=== PATIENT | male | born 1935 | race Caucasian/White ===

== ENCOUNTER 2022-02-05 09:33 | Inpatient (IN) | payer MEDICARE ==
[2022-02-05] MEDS ORDERED: Lasix 40 MG/4 ML IV ONE (09:43)
[2022-02-05] MEDS ORDERED: BABY ASPIRIN 81 MG CHEW PO ONE (09:44)
[2022-02-05] MEDS ORDERED: Lasix 40 MG/4 ML ONE (09:47)
[2022-02-05 10:10] LABS: Hematocrit 37.2 % (42-50); Hemoglobin 11.2 gm/dl (12.5-18.0); Mean Cell Volume 90.7 fl (78-100); Mean Corpuscular Hemoglobin 27.3 pg (26-32); Mean Corpuscular Hgb Concent. 30.1 g/dl (32-36); Mean Platelet Volume 11.3 fl (7.5-11.0); Platelet Count 411 K/mm3 (150-450); Red Cell Distribution Width 19.9 % (11.5-14.0); White Blood Count 16.3 K/mm3 (4.0-10.5)
--- NOTE | 2022-02-05 10:14 | XRAY ---
Indication: Pneumonia. Comparison: None Portable chest demonstrates inferior peripheral right upper lobe consolidation/air space disease with tiny effusion. Remaining heart and left lung unremarkable. Bony thorax intact with mild osteopenia and degenerative changes.
[2022-02-05 10:30] LABS: ALBUMIN 3.5 g/dL (3.5-5.0); ALKALINE PHOSPHATASE 117 U/L (38-126); ANION GAP 13.3 MEQ/L (5-15); BLOOD UREA NITROGEN 12 mg/dL (9-20); CHLORIDE 108 mmol/L (98-107); Calcium 8.5 mg/dL (8.4-10.2); Carbon Dioxide 21 mmol/L (22-30); Creatinine 1 1.08 mg/dL (0.66-1.25); EST GLOMERULAR FILTRATION RATE > 60.0 ML/MIN; Glucose 123 mg/dL (74-106); MAGNESIUM 1.9 mg/dL (1.6-2.3); NT PRO BNP 12000 pg/mL (0-1800); Potassium 4.2 mmol/L (3.5-5.1); SGOT/AST 41 U/L (17-59); SGPT/ALT 34 U/L (0-50); SODIUM 138 mmol/L (137-145); Total Protein 5.7 g/dL (6.3-8.2)
[2022-02-05 10:43] LABS: BAND 6 % (0.0-2.0); Eosinophil 2 % (0.00-3.0); Lymphocytes 14 % (24-44); Metamyelocyte 4 %; Monocyte 5 % (0.0-12.0); Myelocyte 2 %; Neutrophils 67 % (36.-66.); Nucleated Red Blood Cell 4 %; Total Cells Counted 100
[2022-02-05 10:51] LABS: ANISOCYTOSIS 1+; Ovalocytes 3+; Platelet Estimate INCREASED (NORMAL); Polychromasia 1+
--- NOTE | 2022-02-05 11:33 | ERPHSYRPT ---
- History of Present Illness Time Seen by Provider: 02/05/22 09:42 Source: patient Exam Limitations: no limitations Patient Subjective Stated Complaint: Patient c/o SOB. States he had COVID in November of this year and had pneumonia last week. States he was in [facility] last week for the pneumonia and was discharge on Thursday. Indicates [facility] stopped his routine lasix and HTN medications upon discharge from there. Patient denies any pain but indicates that he SOB has become progessively worse everyday since he left the hospital on Thursday. Triage Nursing Assessment: Patient arrived via ambulance. SOB noted upon arrival with an 02 saturation of 93% on room air. Skin pale, warm, dry, loose. Left lower lung lobe with inspiratory crackles noted and right lower lobe is diminished. No cough noted. He is alert and oriented and answering questions appropriately. 3+ pitting edema to BLE. BLE tight. Physician History: 86-year-old male with history of congestive heart failure, hypertension, hyperlipidemia, GERD, restless leg syndrome, presented in the ER with chief complaint of increasing shortness of breath for the last couple of days. Patient report he was recently admitted at [facility] for pneumonia, was recommended to stop Lasix because of worsening renal functions. 2 days ago he is having shortness of breath with activity and today started to have short of breath even resting with associated increased swelling of bilateral lower extremities. Patient was in mild distress per EMS on their arrival, was given DuoNeb and is brought in the ER with oxygen saturation around mid 90s with minimal wheezing. Denies any chest pain but some tightness and pressure. No fever or chills reported. Has minimal nonproductive cough. Timing/Duration: day(s) (2), gradual onset, worse Activities at Onset: activity Severity of Dyspnea-Max: moderate Severity of Dyspnea-Current: moderate Modifying Factors: Worsens With: activity, coughing, exertion Associated Symptoms: cough, edema, heaviness, tightness, No painful breathing, No productive cough Allergies/Adverse Reactions: No Known Drug Allergies Allergy (Unverified 02/05/22 09:37) Home Medications: Albuterol Sulfate [Albuterol Sulfate Hfa] 90 mcg IH Q4H PRN PRN 02/05/22 [History] Allopurinol 100 mg [Zyloprim 100 mg] 100 mg PO DAILY 02/05/22 [History] Escitalopram Oxalate 10 mg [Lexapro 10 MG] 10 mg PO DAILY 02/05/22 [History] Ferrous Sulfate [Andi-Time] 325 mg PO DAILY 02/05/22 [History] Lovastatin [Altoprev] 20 mg PO HS 02/05/22 [History] Metoprolol Succinate 12.5 mg PO DAILY 02/05/22 [History] PANTOPRAZOLE 40 mg Tablet [Protonix 40MG Tablet] 40 mg PO DAILY 02/05/22 [History] Ropinirole HCl 0.5 mg PO HS 02/05/22 [History] Ruxolitinib Phosphate [Jakafi] 10 mg PO BID 02/05/22 [History] Tramadol HCl 50 mg [Ultram 50 mg] 50 mg PO BID PRN 02/05/22 [History] Trazodone HCl 50 mg PO HS 02/05/22 [History] Vit C/E/Zn/Coppr/Lutein/Zeaxan [Preservision Areds 2 Softgel] 1 cap PO BID 02/05/22 [History] Hx Tetanus, Diphtheria Vaccination/Date Given: Yes Hx Influenza Vaccination/Date Given: Yes Hx Pneumococcal Vaccination/Date Given: Yes Immunizations Up to Date: Yes Travel Risk - International Travel Have you traveled outside of the country in past 3 weeks: No - Coronavirus Screening Are you exhibiting any of the following symptoms?: Yes Symptoms: Shortness of Breath - Vaccine Status Have you recieved a Covid-19 vaccination: Yes [employer] Estimator: Moderna - Vaccination Dates Date of 2cond Vaccination (if applicable): 2020 Comment: 2020 - Review of Systems Constitutional: Fatigue, Weakness Eyes: No Symptoms Ears, Nose, & Throat: No Symptoms Respiratory: Dyspnea, Dyspnea on Exertion (LUKE), Wheezing Cardiac: Edema Abdominal/Gastrointestinal: No Symptoms Genitourinary Symptoms: No Symptoms Musculoskeletal: No Symptoms Skin: No Symptoms Neurological: No Symptoms Psychological: No Symptoms Endocrine: No Symptoms Hematologic/Lymphatic: No Symptoms Immunological/Allergic: No Symptoms - Past Medical History Pertinent Past Medical History: Yes Neurological History: No Pertinent History ENT History: Cataracts Cardiac History: High Cholesterol, Hypertension, Other Respiratory History: Pneumonia Endocrine Medical History: No Pertinent History Musculoskeletal History: Arthritis GI Medical History: GERD, Ulcer History: No Pertinent History Psycho-Social History: Depression Male Reproductive Disorders: Prostate Cancer Other Medical History: Leaking heart valve, COVID in November 2021, polycythemia, gout, RLS - Past Surgical History Past Surgical History: Yes Neuro Surgical History: No Pertinent History Cardiac: No Pertinent History Respiratory: No Pertinent History Gastrointestinal: Cholecystectomy, Hernia Repair Genitourinary: No Pertinent History Musculoskeletal: No Pertinent History Male Surgical History: Prostate Surgery - Social History Smoking Status: Former smoker Exposure to second hand smoke: No Drug Use: none Patient Lives Alone: Yes - Nursing Vital Signs Nursing Vital Signs: Initial Vital Signs Temperature 96.9 F 02/05/22 09:38 Pulse Rate 110 H 02/05/22 09:38 Respiratory Rate 27 H 02/05/22 09:38 Blood Pressure 159/115 02/05/22 09:38 O2 Sat by Pulse Oximetry 93 L 02/05/22 09:38 Pain Scale Pain Intensity 0 - Physical Exam General Appearance: no apparent distress, alert Eye Exam: PERRL/EOMI, eyes nml inspection Ears, Nose, Throat Exam: hearing grossly normal, normal ENT inspection, normal pharynx Neck Exam: normal inspection, non-tender, supple, full range of motion Respiratory Exam: diminished breath sounds, rhonchi, wheezing Cardiovascular/Chest Exam: normal heart sounds, tachycardia Abdominal/Gastrointestinal Exam: soft, normal bowel sounds, No tenderness Extremity Exam: non-tender, normal range of motion Neurologic Exam: alert, oriented x 3, cooperative, entry level financial analyst II-XII nml as tested Skin Exam: normal color SpO2 Interpretation: normal SpO2: 90 O2 Delivery: Room Air - Course EKG Interpreted by Me: RATE ([id number]), NORMAL AXIS, prolonged QT interval, Q-wave, Non-specific ST Changes Ordered Tests: Active Orders 24 hr Category Date Time Status Brake Liner STAT Care 02/05/22 09:43 Active EKG-ER Only STAT Care 02/05/22 09:43 Active IV Insertion STAT Care 02/05/22 09:43 Active CHEST 1 VIEW (PORTABLE) Stat Exams 02/05/22 09:43 Completed BLOOD CULTURE Stat Lab 02/05/22 Received CBC W DIFF Stat Lab 02/05/22 09:56 Completed CMP Stat Lab 02/05/22 09:56 Completed Lactic Acid Stat Lab 02/05/22 09:43 Completed MAGNESIUM Stat Lab 02/05/22 09:56 Completed Manual Differential NC Stat Lab 02/05/22 09:56 Completed NT PRO BNP Stat Lab 02/05/22 09:56 Completed TROPONIN Q3H Lab 02/05/22 09:56 Completed TROPONIN Q3H Lab 02/05/22 12:45 Ordered TROPONIN Q3H Lab 02/05/22 15:45 Ordered TROPONIN Q3H Lab 02/05/22 18:45 Ordered TROPONIN Q3H Lab 02/05/22 21:45 Ordered UA W/RFX UR CULTURE Stat Lab 02/05/22 10:24 Ordered Medication Summary Discontinued Medications Generic Name Dose Route Start Last Admin Trade Name Mecca PRN Reason Stop Dose Admin Aspirin 324 mg 02/05/22 09:44 02/05/22 09:48 Aspirin 81 Mg Tab.Chew PO 02/05/22 09:45 324 mg STAT ONE Administration Furosemide 60 mg 02/05/22 09:43 02/05/22 09:57 Furosemide 40 Mg/4 Ml Vial IV 02/05/22 09:44 60 mg STAT ONE Administration Furosemide Confirm 02/05/22 09:47 Furosemide 40 Mg/4 Ml Vial Administered 02/05/22 09:48 Dose 80 mg .ROUTE .STK-MED ONE Lab/Rad Data: Laboratory Result Diagrams 02/05/22 09:56 02/05/22 09:56 Laboratory Results 02/05/22 02/05/22 02/05/22 Range/Units 09:56 09:56 09:56 WBC 16.3 H (4.0-10.5) K/mm3 RBC 4.10 (4.1-5.6) M/mm3 Hgb 11.2 L (12.5-18.0) gm/dl Hct 37.2 L (42-50) % MCV 90.7 (78-100) fl MCH 27.3 (26-32) pg MCHC 30.1 L (32-36) g/dl RDW 19.9 H (11.5-14.0) % Plt Count 411 (150-450) K/mm3 MPV 11.3 H (7.5-11.0) fl Segmented Neutrophils 67 H (36.-66.) % Band Neutrophils 6 H (0.0-2.0) % Lymphocytes (Manual) 14 L (24-44) % Monocytes (Manual) 5 (0.0-12.0) % Eosinophils (Manual) 2 (0.00-3.0) % Metamyelocytes 4 % Myelocytes 2 % Nucleated RBCs 4 % Platelet Estimate INCREASED (NORMAL) RBC Morphology ABNORMAL Polychromasia 1+ Anisocytosis 1+ Ovalocytes 3+ Sodium 138 (137-145) mmol/L Potassium 4.2 (3.5-5.1) mmol/L Chloride 108 H (98-107) mmol/L Carbon Dioxide 21 L (22-30) mmol/L Anion Gap 13.3 (5-15) MEQ/L BUN 12 (9-20) mg/dL Creatinine 1.08 (0.66-1.25) mg/dL Estimated GFR > 60.0 ML/MIN Glucose 123 H (74-106) mg/dL Lactic Acid (0.4-2.0) Calcium 8.5 (8.4-10.2) mg/dL Magnesium 1.9 (1.6-2.3) mg/dL Total Bilirubin 1.00 (0.2-1.3) mg/dL AST 41 (17-59) U/L ALT 34 (0-50) U/L Alkaline Phosphatase 117 (38-126) U/L Troponin I 0.231 H* (0.000-0.034) ng/mL NT-Pro-B Natriuret Pep 17564 H (0-1800) pg/mL Serum Total Protein 5.7 L (6.3-8.2) g/dL Albumin 3.5 (3.5-5.0) g/dL 02/05/22 Range/Units 09:43 WBC (4.0-10.5) K/mm3 RBC (4.1-5.6) M/mm3 Hgb (12.5-18.0) gm/dl Hct (42-50) % MCV (78-100) fl MCH (26-32) pg MCHC (32-36) g/dl RDW (11.5-14.0) % Plt Count (150-450) K/mm3 MPV (7.5-11.0) fl Segmented Neutrophils (36.-66.) % Band Neutrophils (0.0-2.0) % Lymphocytes (Manual) (24-44) % Monocytes (Manual) (0.0-12.0) % Eosinophils (Manual) (0.00-3.0) % Metamyelocytes % Myelocytes % Nucleated RBCs % Platelet Estimate (NORMAL) RBC Morphology Polychromasia Anisocytosis Ovalocytes Sodium (137-145) mmol/L Potassium (3.5-5.1) mmol/L Chloride (98-107) mmol/L Carbon Dioxide (22-30) mmol/L Anion Gap (5-15) MEQ/L BUN (9-20) mg/dL Creatinine (0.66-1.25) mg/dL Estimated GFR ML/MIN Glucose (74-106) mg/dL Lactic Acid 1.2 (0.4-2.0) Calcium (8.4-10.2) mg/dL Magnesium (1.6-2.3) mg/dL Total Bilirubin (0.2-1.3) mg/dL AST (17-59) U/L ALT (0-50) U/L Alkaline Phosphatase (38-126) U/L Troponin I (0.000-0.034) ng/mL NT-Pro-B Natriuret Pep (0-1800) pg/mL Serum Total Protein (6.3-8.2) g/dL Albumin (3.5-5.0) g/dL - Progress Progress: improved Air Movement: fair Progress Note: 86-year-old is evaluated for increasing shortness of breath with bilateral lower extremity swelling for the last few days after not taking Lasix since discharge from [facility]. Patient is not in any distress on presentation. Minimal wheezing on arrival after DuoNeb. Given aspirin and IV Lasix. Chest x- ray showed some element of pneumonia which is probably residual from previous. Has a white count of 16 and maintaining oxygen saturation around 95% on room air. EKG showed sinus tach without any ST elevation but has initial troponin of 0.2 with a BNP of 12,000 which probably the reason for elevation in troponin. I believe patient has CHF exacerbation, discussed with Dr. Nicholas, reviewed history, work-up and agreed with IV diuresis and admission. We will hold off on antibiotics. Blood cultures are obtained. 02/05/22 11:34 Blood Culture(s) Obtained: Yes Antibiotics given: No Discussed with : Roxie Will see patient in: hospital (observation) Counseled pt/family regarding: lab results, diagnosis, need for follow-up, rad results - Departure Departure Disposition: Observation Clinical Impression: CHF exacerbation Condition: Stable Critical Care Time: No Referrals: DALIA NICHOLAS MD [Primary Care Provider] - Follow up/PCP as directed Instructions: Heart Failure
[2022-02-05 11:43] LABS: Mucus SLIGHT /HPF (NEGATIVE)
[2022-02-05 11:53] LABS: Appearance CLEAR (CLEAR); Glucose NEGATIVE (NEGATIVE)
[2022-02-05 11:54] LABS: Bilirubin NEGATIVE (NEGATIVE); Ketones NEGATIVE (NEGATIVE); Ph 6.5 (5-6); Protein,Urine Dip 100 (Negative); RBC NEGATIVE Ery/ul (0-5)
[2022-02-05 11:55] LABS: Dipstick done @ ? MAIN LAB; Nitrite NEGATIVE (NEGATIVE); Urobilinogen 0.2 mg/dL (0-1)
[2022-02-05] MEDS ORDERED: TYLENOL 325 MG PO PRN (12:35)
[2022-02-05] MEDS ORDERED: MORPHINE SULFATE 2 MG INJ IV PRN (12:35)
[2022-02-05] MEDS ORDERED: PROTONIX 40 MG IV IV SCH (13:00)
[2022-02-05] MEDS ORDERED: VENTOLIN COMMON CANISTER IH PRN (13:04)
[2022-02-05] MEDS: ENOXAPARIN SODIUM SQ SCH (13:51)
[2022-02-05] MEDS: VENTOLIN COMMON CANISTER IH SCH ×2 (14:36→19:20)
[2022-02-05] MEDS ORDERED: DUONEB 0.5-3 MG/3 ml Neb IH SCH (15:00)
[2022-02-05] MEDS ORDERED: NON-FORMULARY ITEM (Ropinirole Hcl [Ropinirole Hcl] 1 MG Tablet) PO PRN (15:25)
[2022-02-05] MEDS ORDERED: Requip 0.5 MG PO PRN ×2 (15:29→15:45)
[2022-02-05] MEDS ORDERED: MEDICATION INTERVENTION PO SCH (15:45)
--- NOTE | 2022-02-05 16:31 | PCM.HP ---
History of Present Illness - Chief Complaint Chief Complaint: CHF exacerbation History of Present Illness: is a 86 year old male who was recently released from [facility], was treated for pneumonia, he was told his kidneys "were flat" and so his lasix was stopped, he continues to have a cough with sputum and worsening shortness of breath, he has increasing swelling in his feet and difficulty sleeping, no known fever. - Review of Systems Constitutional: No Fever, No Chills Respiratory: Cough, Short Of Breath Cardiac: No Chest Pain, No Edema, No Syncope Abdominal/Gastrointestinal: No Abdominal Pain, No Nausea, No Vomiting, No Diarrhea Genitourinary Symptoms: No Dysuria Skin: No Rash All Other Systems: Reviewed and Negative Medications & Allergies Home Medications: Home Medication List Albuterol Sulfate [Albuterol Sulfate Hfa] 90 mcg IH Q4H PRN PRN 02/05/22 [History Confirmed 02/05/22] Allopurinol 100 mg [Zyloprim 100 mg] 100 mg PO DAILY 02/05/22 [History Confirmed 02/05/22] Escitalopram Oxalate 10 mg [Lexapro 10 MG] 10 mg PO DAILY 02/05/22 [History Confirmed 02/05/22] Ferrous Sulfate [Andi-Time] 325 mg PO DAILY 02/05/22 [History Confirmed 02/05/22] Furosemide 20 mg [Lasix 20 mg] 20 mg PO DAILY 02/05/22 [History Confirmed 02/05/22] Lovastatin [Altoprev] 20 mg PO HS 02/05/22 [History Confirmed 02/05/22] Multivitamin [Multi-Vitamin Daily] 1 each PO DAILY 02/05/22 [History Confirmed 02/05/22] PANTOPRAZOLE 40 mg Tablet [Protonix 40MG Tablet] 40 mg PO DAILY 02/05/22 [History Confirmed 02/05/22] Ropinirole HCl 0.5 mg PO DAILY PRN PRN 02/05/22 [History Confirmed 02/05/22] Ruxolitinib Phosphate [Jakafi] 10 mg PO BID 02/05/22 [History Confirmed 02/05/22] Tramadol HCl 50 mg [Ultram 50 mg] 50 mg PO Q6HPRN PRN 02/05/22 [History Confirmed 02/05/22] Trazodone HCl 50 mg PO HS 02/05/22 [History Confirmed 02/05/22] Valsartan 40 mg PO DAILY 02/05/22 [History Confirmed 02/05/22] Vit C/E/Zn/Coppr/Lutein/Zeaxan [Preservision Areds 2 Softgel] 1 cap PO BID 02/05/22 [History Confirmed 02/05/22] Allergies/Adverse Reactions: Allergies Allergy/AdvReac Type Severity Reaction Status Date / Time No Known Drug Allergies Allergy Verified 02/05/22 12:57 - Past Medical History Past Medical History: Yes Neurological History: No Pertinent History ENT History: Cataracts Cardiac History: High Cholesterol, Hypertension, Other Respiratory History: Pneumonia Endocrine Medical History: No Pertinent History Musculoskelatal History: Arthritis GI Medical History: GERD, Ulcer History: No Pertinent History Pyscho-Social History: Depression Male Reproductive Disorders: Prostate Cancer Comment: Leaking heart valve, COVID in November 2021, polycythemia, RLS - Past Surgical History Past Surgical History: Yes Neuro Surgical History: No Pertinent History Cardiac History: No Pertinent History Respiratory Surgery: No Pertinent History GI Surgical History: Cholecystectomy, Hernia Repair Genitourinary Surgical Hx: No Pertinent History Musculskeletal Surgical Hx: No Pertinent History Male Surgical History: Prostate Surgery - Social History Smoking Status: Never smoker Exposure to second hand smoke: No Alcohol: Rarely Drug Use: none - Physical Exam Vital Signs: Vital Signs - 24 hr Temp Pulse Resp BP Pulse Ox 02/05/22 16:00 97.3 F 104 H 29 H 130/81 91 L 02/05/22 14:42 109 H 16 92 L 02/05/22 13:06 97 H 16 94 L 02/05/22 12:36 97.8 F 103 H 20 118/75 92 L 02/05/22 12:02 95 H 17 126/78 93 L 02/05/22 11:36 90 L 02/05/22 11:16 102 H 21 115/70 90 L 02/05/22 09:38 96.9 F 110 H 27 H 159/115 93 L General Appearance: no apparent distress Neurologic Exam: alert, oriented x 3, cooperative Respiratory Exam: crackles/rales (right lung) Cardiovascular Exam: regular rate/rhythm, normal heart sounds, normal peripheral pulses Gastrointestinal/Abdomen Exam: soft, normal bowel sounds, No tenderness, No mass Extremity Exam: swelling Skin Exam: normal color, warm, dry, No rash Results - Labs Lab/Micro Results: Lab Results-Last 24 Hours 02/05/22 02/05/22 02/05/22 Range/Units 09:43 09:56 09:56 WBC 16.3 H (4.0-10.5) K/mm3 RBC 4.10 (4.1-5.6) M/mm3 Hgb 11.2 L (12.5-18.0) gm/dl Hct 37.2 L (42-50) % MCV 90.7 (78-100) fl MCH 27.3 (26-32) pg MCHC 30.1 L (32-36) g/dl RDW 19.9 H (11.5-14.0) % Plt Count 411 (150-450) K/mm3 MPV 11.3 H (7.5-11.0) fl Segmented Neutrophils 67 H (36.-66.) % Band Neutrophils 6 H (0.0-2.0) % Lymphocytes (Manual) 14 L (24-44) % Monocytes (Manual) 5 (0.0-12.0) % Eosinophils (Manual) 2 (0.00-3.0) % Metamyelocytes 4 % Myelocytes 2 % Nucleated RBCs 4 % Platelet Estimate INCREASED (NORMAL) RBC Morphology ABNORMAL Polychromasia 1+ Anisocytosis 1+ Ovalocytes 3+ Sodium 138 (137-145) mmol/L Potassium 4.2 (3.5-5.1) mmol/L Chloride 108 H (98-107) mmol/L Carbon Dioxide 21 L (22-30) mmol/L Anion Gap 13.3 (5-15) MEQ/L BUN 12 (9-20) mg/dL Creatinine 1.08 (0.66-1.25) mg/dL Estimated GFR > 60.0 ML/MIN Glucose 123 H (74-106) mg/dL Lactic Acid 1.2 (0.4-2.0) Calcium 8.5 (8.4-10.2) mg/dL Magnesium 1.9 (1.6-2.3) mg/dL Total Bilirubin 1.00 (0.2-1.3) mg/dL AST 41 (17-59) U/L ALT 34 (0-50) U/L Alkaline Phosphatase 117 (38-126) U/L Troponin I (0.000-0.034) ng/mL NT-Pro-B Natriuret Pep 94669 H (0-1800) pg/mL Serum Total Protein 5.7 L (6.3-8.2) g/dL Albumin 3.5 (3.5-5.0) g/dL Urinalys Dipstick Clnc Urine Color (YELLOW) Urine Appearance (CLEAR) Urine pH (5-6) Ur Specific Hunt (1.005-1.025) POC Urine Protein Conf (Negative) Urine Ketones (NEGATIVE) Urine Nitrite (NEGATIVE) Urine Bilirubin (NEGATIVE) Urine Urobilinogen (0-1) mg/dL Urine Leukocytes (NEGATIVE) Urine WBC (Auto) (0-5) /HPF Urine RBC (Auto) U Epithel Cells (Auto) Urine Bacteria (Auto) Urine RBC (0-5) David/ul Urine Mucus (Auto) (NEGATIVE) /HPF Urine Glucose (NEGATIVE) mg/dL 02/05/22 02/05/22 02/05/22 Range/Units 09:56 10:24 12:27 WBC (4.0-10.5) K/mm3 RBC (4.1-5.6) M/mm3 Hgb (12.5-18.0) gm/dl Hct (42-50) % MCV (78-100) fl MCH (26-32) pg MCHC (32-36) g/dl RDW (11.5-14.0) % Plt Count (150-450) K/mm3 MPV (7.5-11.0) fl Segmented Neutrophils (36.-66.) % Band Neutrophils (0.0-2.0) % Lymphocytes (Manual) (24-44) % Monocytes (Manual) (0.0-12.0) % Eosinophils (Manual) (0.00-3.0) % Metamyelocytes % Myelocytes % Nucleated RBCs % Platelet Estimate (NORMAL) RBC Morphology Polychromasia Anisocytosis Ovalocytes Sodium (137-145) mmol/L Potassium (3.5-5.1) mmol/L Chloride (98-107) mmol/L Carbon Dioxide (22-30) mmol/L Anion Gap (5-15) MEQ/L BUN (9-20) mg/dL Creatinine (0.66-1.25) mg/dL Estimated GFR ML/MIN Glucose (74-106) mg/dL Lactic Acid (0.4-2.0) Calcium (8.4-10.2) mg/dL Magnesium (1.6-2.3) mg/dL Total Bilirubin (0.2-1.3) mg/dL AST (17-59) U/L ALT (0-50) U/L Alkaline Phosphatase (38-126) U/L Troponin I 0.231 H* 0.235 H* (0.000-0.034) ng/mL NT-Pro-B Natriuret Pep (0-1800) pg/mL Serum Total Protein (6.3-8.2) g/dL Albumin (3.5-5.0) g/dL Urinalys Dipstick Clnc MAIN LAB Urine Color YELLOW (YELLOW) Urine Appearance CLEAR (CLEAR) Urine pH 6.5 (5-6) Ur Specific Hunt 1.020 (1.005-1.025) POC Urine Protein Conf 100 (Negative) Urine Ketones NEGATIVE (NEGATIVE) Urine Nitrite NEGATIVE (NEGATIVE) Urine Bilirubin NEGATIVE (NEGATIVE) Urine Urobilinogen 0.2 (0-1) mg/dL Urine Leukocytes NEGATIVE (NEGATIVE) Urine WBC (Auto) NONE (0-5) /HPF Urine RBC (Auto) Not Reportable U Epithel Cells (Auto) Not Reportable Urine Bacteria (Auto) Not Reportable Urine RBC NEGATIVE (0-5) David/ul Urine Mucus (Auto) SLIGHT (NEGATIVE) /HPF Urine Glucose NEGATIVE (NEGATIVE) mg/dL 02/05/22 Range/Units 15:52 WBC (4.0-10.5) K/mm3 RBC (4.1-5.6) M/mm3 Hgb (12.5-18.0) gm/dl Hct (42-50) % MCV (78-100) fl MCH (26-32) pg MCHC (32-36) g/dl RDW (11.5-14.0) % Plt Count (150-450) K/mm3 MPV (7.5-11.0) fl Segmented Neutrophils (36.-66.) % Band Neutrophils (0.0-2.0) % Lymphocytes (Manual) (24-44) % Monocytes (Manual) (0.0-12.0) % Eosinophils (Manual) (0.00-3.0) % Metamyelocytes % Myelocytes % Nucleated RBCs % Platelet Estimate (NORMAL) RBC Morphology Polychromasia Anisocytosis Ovalocytes Sodium (137-145) mmol/L Potassium (3.5-5.1) mmol/L Chloride (98-107) mmol/L Carbon Dioxide (22-30) mmol/L Anion Gap (5-15) MEQ/L BUN (9-20) mg/dL Creatinine (0.66-1.25) mg/dL Estimated GFR ML/MIN Glucose (74-106) mg/dL Lactic Acid (0.4-2.0) Calcium (8.4-10.2) mg/dL Magnesium (1.6-2.3) mg/dL Total Bilirubin (0.2-1.3) mg/dL AST (17-59) U/L ALT (0-50) U/L Alkaline Phosphatase (38-126) U/L Troponin I 0.249 H* (0.000-0.034) ng/mL NT-Pro-B Natriuret Pep (0-1800) pg/mL Serum Total Protein (6.3-8.2) g/dL Albumin (3.5-5.0) g/dL Urinalys Dipstick Clnc Urine Color (YELLOW) Urine Appearance (CLEAR) Urine pH (5-6) Ur Specific Hunt (1.005-1.025) POC Urine Protein Conf (Negative) Urine Ketones (NEGATIVE) Urine Nitrite (NEGATIVE) Urine Bilirubin (NEGATIVE) Urine Urobilinogen (0-1) mg/dL Urine Leukocytes (NEGATIVE) Urine WBC (Auto) (0-5) /HPF Urine RBC (Auto) U Epithel Cells (Auto) Urine Bacteria (Auto) Urine RBC (0-5) David/ul Urine Mucus (Auto) (NEGATIVE) /HPF Urine Glucose (NEGATIVE) mg/dL - Radiology Impressions Radiology Exams & Impressions: Radiology Procedures Category Date Time Status CHEST 1 VIEW (PORTABLE) Stat Exams 02/05/22 09:43 Completed - Other Procedures and Tests Respiratory Therapy 02/05/22 12:35 Oxygen Nasal Cannula 2 lpm 02/05/22 13:05 Respiratory Therapy Assessment DAILY Assessment/Plan (1) CHF exacerbation Current Visit: Yes Status: Acute Assessment & Plan: IV lasix ordered, will follow renal function but currently normal Code(s): I50.9 - HEART FAILURE, UNSPECIFIED (2) Right upper lobe pneumonia Current Visit: Yes Status: Acute Assessment & Plan: rocephin and zithromax ordered at this time Code(s): J18.9 - PNEUMONIA, UNSPECIFIED ORGANISM
[2022-02-05] MEDS: ROCEPHIN 1 Gm-D5w 50 ml Bag** 1 G/50 ML IVPB IV SCH (16:39)
[2022-02-05] MEDS: Robitussin AC Syrup Unit Dose Cup PO PRN ×2 (16:39→21:31)
[2022-02-05] MEDS ORDERED: Zithromax 500 MG/ 250 ML NaCl Premix 500 MG/250 ML IVPB IV SCH (17:00)
[2022-02-05] MEDS: Zofran 4 MG/2 ML VIAL IV PRN (18:27)
[2022-02-05] MEDS: Lasix 40 MG/4 ML IV SCH (21:30)
[2022-02-05] MEDS: Klor Con 10 MEQ PO SCH (21:30)
[2022-02-05] MEDS: DESYREL 50 MG PO SCH (21:31)
[2022-02-05] MEDS: ULTRAM 50 MG PO PRN (21:38)
[2022-02-05] MEDS ORDERED: RUXOLITINIB PHOSPHATE 10 MG PO SCH (22:00)
[2022-02-06 05:23] LABS: Hematocrit 33.5 % (42-50); Hemoglobin 10.1 gm/dl (12.5-18.0); Mean Cell Volume 91.8 fl (78-100); Mean Corpuscular Hemoglobin 27.7 pg (26-32); Mean Corpuscular Hgb Concent. 30.1 g/dl (32-36); Mean Platelet Volume 11.7 fl (7.5-11.0); Platelet Count 348 K/mm3 (150-450); Red Blood Count 3.65 M/mm3 (4.1-5.6); Red Cell Distribution Width 19.8 % (11.5-14.0); White Blood Count 12.7 K/mm3 (4.0-10.5)
[2022-02-06 05:40] LABS: ALBUMIN 3.2 g/dL (3.5-5.0); ANION GAP 10.6 MEQ/L (5-15); BILIRUBIN,TOTAL 0.9 mg/dL (0.2-1.3); Calcium 8.3 mg/dL (8.4-10.2); Creatinine 1 1.35 mg/dL (0.66-1.25); EST GLOMERULAR FILTRATION RATE 53.5 ML/MIN; MAGNESIUM 1.9 mg/dL (1.6-2.3); Potassium 3.9 mmol/L (3.5-5.1); Total Protein 5.7 g/dL (6.3-8.2)
[2022-02-06] MEDS: VENTOLIN COMMON CANISTER IH SCH ×4 (07:28→20:06)
[2022-02-06 07:42] LABS: BAND 5 % (0.0-2.0); Eosinophil 1 % (0.00-3.0); Lymphocytes 16 % (24-44); Metamyelocyte 2 %; Monocyte 2 % (0.0-12.0); Myelocyte 2 %; Neutrophils 72 % (36.-66.); Total Cells Counted 100
[2022-02-06 07:43] LABS: ANISOCYTOSIS 2+; Platelet Estimate NORMAL (NORMAL); Poikilocytosis 1+; Polychromasia 1+; Tear Drop Cells 1+
[2022-02-06 07:44] LABS: Ovalocytes 2+; Toxic Granulation 1+
[2022-02-06 07:45] LABS: Basophilic Stippling RARE
--- NOTE | 2022-02-06 08:35 | PCM.NOTE ---
Date and Time: 02/06/22832 Subjective Assessment: patient reports he is feeling better, cough and shortness of breath are improved. he is still requiring oxygen Objective Exam General Appearance: no apparent distress Neurologic Exam: alert, oriented x 3 Respiratory Exam: normal breath sounds, rhonchi, No respiratory distress Cardiovascular Exam: regular rate/rhythm, normal heart sounds Gastrointestinal/Abdomen Exam: soft, No tenderness, No mass Extremity Exam: swelling OBJECTIVE DATA Vital Signs: Vital Signs - 24 hr Temp Pulse Resp BP Pulse Ox 02/06/22 07:46 96.2 F 94 H 18 111/65 96 02/06/22 07:29 102 H 16 95 02/06/22 04:00 98.0 F 95 H 20 109/67 96 02/05/22 23:59 97.9 F 96 H 20 111/63 93 L 02/05/22 20:00 97.3 F 104 H 18 107/69 95 02/05/22 19:44 99 H 18 94 L 02/05/22 16:00 97.3 F 104 H 29 H 130/81 91 L 02/05/22 14:42 109 H 16 92 L 02/05/22 13:06 97 H 16 94 L 02/05/22 12:36 97.8 F 103 H 20 118/75 92 L 02/05/22 12:02 95 H 17 126/78 93 L 02/05/22 11:36 90 L 02/05/22 11:16 102 H 21 115/70 90 L 02/05/22 09:38 96.9 F 110 H 27 H 159/115 93 L Pain Assessment - Last Documented Pain Intensity 0 Intake and Output: Intake & Output 02/03/22 02/04/22 02/05/22 02/06/22 11:59 11:59 11:59 11:59 Intake Total 980 Output Total 1970 Balance -990 Weight 111.7 kg 103.4 kg Lab Results: Lab Results-Last 24 Hours 02/05/22 02/05/22 02/05/22 Range/Units 09:43 09:56 09:56 WBC 16.3 H (4.0-10.5) K/mm3 RBC 4.10 (4.1-5.6) M/mm3 Hgb 11.2 L (12.5-18.0) gm/dl Hct 37.2 L (42-50) % MCV 90.7 (78-100) fl MCH 27.3 (26-32) pg MCHC 30.1 L (32-36) g/dl RDW 19.9 H (11.5-14.0) % Plt Count 411 (150-450) K/mm3 MPV 11.3 H (7.5-11.0) fl Segmented Neutrophils 67 H (36.-66.) % Band Neutrophils 6 H (0.0-2.0) % Lymphocytes (Manual) 14 L (24-44) % Monocytes (Manual) 5 (0.0-12.0) % Eosinophils (Manual) 2 (0.00-3.0) % Metamyelocytes 4 % Myelocytes 2 % Nucleated RBCs 4 % Toxic Granulation Platelet Estimate INCREASED (NORMAL) RBC Morphology ABNORMAL Polychromasia 1+ Poikilocytosis Basophilic Stippling Anisocytosis 1+ Tear Drop Cells Ovalocytes 3+ Sodium 138 (137-145) mmol/L Potassium 4.2 (3.5-5.1) mmol/L Chloride 108 H (98-107) mmol/L Carbon Dioxide 21 L (22-30) mmol/L Anion Gap 13.3 (5-15) MEQ/L BUN 12 (9-20) mg/dL Creatinine 1.08 (0.66-1.25) mg/dL Estimated GFR > 60.0 ML/MIN Glucose 123 H (74-106) mg/dL Lactic Acid 1.2 (0.4-2.0) Calcium 8.5 (8.4-10.2) mg/dL Magnesium 1.9 (1.6-2.3) mg/dL Total Bilirubin 1.00 (0.2-1.3) mg/dL AST 41 (17-59) U/L ALT 34 (0-50) U/L Alkaline Phosphatase 117 (38-126) U/L Troponin I (0.000-0.034) ng/mL NT-Pro-B Natriuret Pep 63760 H (0-1800) pg/mL Serum Total Protein 5.7 L (6.3-8.2) g/dL Albumin 3.5 (3.5-5.0) g/dL Urinalys Dipstick Clnc Urine Color (YELLOW) Urine Appearance (CLEAR) Urine pH (5-6) Ur Specific [place] (1.005-1.025) POC Urine Protein Conf (Negative) Urine Ketones (NEGATIVE) Urine Nitrite (NEGATIVE) Urine Bilirubin (NEGATIVE) Urine Urobilinogen (0-1) mg/dL Urine Leukocytes (NEGATIVE) Urine WBC (Auto) (0-5) /HPF Urine RBC (Auto) U Epithel Cells (Auto) Urine Bacteria (Auto) Urine RBC (0-5) David/ul Urine Mucus (Auto) (NEGATIVE) /HPF Urine Glucose (NEGATIVE) mg/dL 02/05/22 02/05/22 02/05/22 Range/Units 09:56 10:24 12:27 WBC (4.0-10.5) K/mm3 RBC (4.1-5.6) M/mm3 Hgb (12.5-18.0) gm/dl Hct (42-50) % MCV (78-100) fl MCH (26-32) pg MCHC (32-36) g/dl RDW (11.5-14.0) % Plt Count (150-450) K/mm3 MPV (7.5-11.0) fl Segmented Neutrophils (36.-66.) % Band Neutrophils (0.0-2.0) % Lymphocytes (Manual) (24-44) % Monocytes (Manual) (0.0-12.0) % Eosinophils (Manual) (0.00-3.0) % Metamyelocytes % Myelocytes % Nucleated RBCs % Toxic Granulation Platelet Estimate (NORMAL) RBC Morphology Polychromasia Poikilocytosis Basophilic Stippling Anisocytosis Tear Drop Cells Ovalocytes Sodium (137-145) mmol/L Potassium (3.5-5.1) mmol/L Chloride (98-107) mmol/L Carbon Dioxide (22-30) mmol/L Anion Gap (5-15) MEQ/L BUN (9-20) mg/dL Creatinine (0.66-1.25) mg/dL Estimated GFR ML/MIN Glucose (74-106) mg/dL Lactic Acid (0.4-2.0) Calcium (8.4-10.2) mg/dL Magnesium (1.6-2.3) mg/dL Total Bilirubin (0.2-1.3) mg/dL AST (17-59) U/L ALT (0-50) U/L Alkaline Phosphatase (38-126) U/L Troponin I 0.231 H* 0.235 H* (0.000-0.034) ng/mL NT-Pro-B Natriuret Pep (0-1800) pg/mL Serum Total Protein (6.3-8.2) g/dL Albumin (3.5-5.0) g/dL Urinalys Dipstick Clnc MAIN LAB Urine Color YELLOW (YELLOW) Urine Appearance CLEAR (CLEAR) Urine pH 6.5 (5-6) Ur Specific [place] 1.020 (1.005-1.025) POC Urine Protein Conf 100 (Negative) Urine Ketones NEGATIVE (NEGATIVE) Urine Nitrite NEGATIVE (NEGATIVE) Urine Bilirubin NEGATIVE (NEGATIVE) Urine Urobilinogen 0.2 (0-1) mg/dL Urine Leukocytes NEGATIVE (NEGATIVE) Urine WBC (Auto) NONE (0-5) /HPF Urine RBC (Auto) Not Reportable U Epithel Cells (Auto) Not Reportable Urine Bacteria (Auto) Not Reportable Urine RBC NEGATIVE (0-5) David/ul Urine Mucus (Auto) SLIGHT (NEGATIVE) /HPF Urine Glucose NEGATIVE (NEGATIVE) mg/dL 02/05/22 02/05/22 02/05/22 Range/Units 15:52 18:40 22:00 WBC (4.0-10.5) K/mm3 RBC (4.1-5.6) M/mm3 Hgb (12.5-18.0) gm/dl Hct (42-50) % MCV (78-100) fl MCH (26-32) pg MCHC (32-36) g/dl RDW (11.5-14.0) % Plt Count (150-450) K/mm3 MPV (7.5-11.0) fl Segmented Neutrophils (36.-66.) % Band Neutrophils (0.0-2.0) % Lymphocytes (Manual) (24-44) % Monocytes (Manual) (0.0-12.0) % Eosinophils (Manual) (0.00-3.0) % Metamyelocytes % Myelocytes % Nucleated RBCs % Toxic Granulation Platelet Estimate (NORMAL) RBC Morphology Polychromasia Poikilocytosis Basophilic Stippling Anisocytosis Tear Drop Cells Ovalocytes Sodium (137-145) mmol/L Potassium (3.5-5.1) mmol/L Chloride (98-107) mmol/L Carbon Dioxide (22-30) mmol/L Anion Gap (5-15) MEQ/L BUN (9-20) mg/dL Creatinine (0.66-1.25) mg/dL Estimated GFR ML/MIN Glucose (74-106) mg/dL Lactic Acid (0.4-2.0) Calcium (8.4-10.2) mg/dL Magnesium (1.6-2.3) mg/dL Total Bilirubin (0.2-1.3) mg/dL AST (17-59) U/L ALT (0-50) U/L Alkaline Phosphatase (38-126) U/L Troponin I 0.249 H* 0.248 H* 0.264 H* (0.000-0.034) ng/mL NT-Pro-B Natriuret Pep (0-1800) pg/mL Serum Total Protein (6.3-8.2) g/dL Albumin (3.5-5.0) g/dL Urinalys Dipstick Clnc Urine Color (YELLOW) Urine Appearance (CLEAR) Urine pH (5-6) Ur Specific [place] (1.005-1.025) POC Urine Protein Conf (Negative) Urine Ketones (NEGATIVE) Urine Nitrite (NEGATIVE) Urine Bilirubin (NEGATIVE) Urine Urobilinogen (0-1) mg/dL Urine Leukocytes (NEGATIVE) Urine WBC (Auto) (0-5) /HPF Urine RBC (Auto) U Epithel Cells (Auto) Urine Bacteria (Auto) Urine RBC (0-5) David/ul Urine Mucus (Auto) (NEGATIVE) /HPF Urine Glucose (NEGATIVE) mg/dL 02/06/22 02/06/22 Range/Units 04:45 04:45 WBC 12.7 H (4.0-10.5) K/mm3 RBC 3.65 L (4.1-5.6) M/mm3 Hgb 10.1 L (12.5-18.0) gm/dl Hct 33.5 L (42-50) % MCV 91.8 (78-100) fl MCH 27.7 (26-32) pg MCHC 30.1 L (32-36) g/dl RDW 19.8 H (11.5-14.0) % Plt Count 348 (150-450) K/mm3 MPV 11.7 H (7.5-11.0) fl Segmented Neutrophils 72 H (36.-66.) % Band Neutrophils 5 H (0.0-2.0) % Lymphocytes (Manual) 16 L (24-44) % Monocytes (Manual) 2 (0.0-12.0) % Eosinophils (Manual) 1 (0.00-3.0) % Metamyelocytes 2 % Myelocytes 2 % Nucleated RBCs % Toxic Granulation 1+ Platelet Estimate NORMAL (NORMAL) RBC Morphology ABNORMAL Polychromasia 1+ Poikilocytosis 1+ Basophilic Stippling RARE Anisocytosis 2+ Tear Drop Cells 1+ Ovalocytes 2+ Sodium 139 (137-145) mmol/L Potassium 3.9 (3.5-5.1) mmol/L Chloride 105 (98-107) mmol/L Carbon Dioxide 27 (22-30) mmol/L Anion Gap 10.6 (5-15) MEQ/L BUN 17 (9-20) mg/dL Creatinine 1.35 H (0.66-1.25) mg/dL Estimated GFR 53.5 ML/MIN Glucose 112 H (74-106) mg/dL Lactic Acid (0.4-2.0) Calcium 8.3 L (8.4-10.2) mg/dL Magnesium 1.9 (1.6-2.3) mg/dL Total Bilirubin 0.90 (0.2-1.3) mg/dL AST 35 (17-59) U/L ALT 31 (0-50) U/L Alkaline Phosphatase 90 (38-126) U/L Troponin I (0.000-0.034) ng/mL NT-Pro-B Natriuret Pep 49870 H (0-1800) pg/mL Serum Total Protein 5.7 L (6.3-8.2) g/dL Albumin 3.2 L (3.5-5.0) g/dL Urinalys Dipstick Clnc Urine Color (YELLOW) Urine Appearance (CLEAR) Urine pH (5-6) Ur Specific [place] (1.005-1.025) POC Urine Protein Conf (Negative) Urine Ketones (NEGATIVE) Urine Nitrite (NEGATIVE) Urine Bilirubin (NEGATIVE) Urine Urobilinogen (0-1) mg/dL Urine Leukocytes (NEGATIVE) Urine WBC (Auto) (0-5) /HPF Urine RBC (Auto) U Epithel Cells (Auto) Urine Bacteria (Auto) Urine RBC (0-5) David/ul Urine Mucus (Auto) (NEGATIVE) /HPF Urine Glucose (NEGATIVE) mg/dL Radiology Exams: Radiology Procedures Category Date Time Status CHEST 1 VIEW (PORTABLE) Stat Exams 02/05/22 09:43 Completed Assessment/Plan (1) CHF exacerbation Current Visit: Yes Status: Acute Assessment & Plan: improving with IV lasix, will continue to follow Code(s): I50.9 - HEART FAILURE, UNSPECIFIED (2) Right upper lobe pneumonia Current Visit: Yes Status: Acute Assessment & Plan: continue IV rocephin and zithromax Code(s): J18.9 - PNEUMONIA, UNSPECIFIED ORGANISM
[2022-02-06] MEDS: Klor Con 10 MEQ PO SCH ×2 (10:34→21:06)
[2022-02-06] MEDS: Lasix 40 MG/4 ML IV SCH ×2 (10:34→21:07)
[2022-02-06] MEDS: ENOXAPARIN SODIUM SQ SCH (10:34)
[2022-02-06] MEDS: ULTRAM 50 MG PO PRN ×2 (10:35→18:50)
[2022-02-06] MEDS: PATIENT OWN MEDICATION PO SCH ×2 (10:35→21:07)
[2022-02-06] MEDS: ROCEPHIN 1 Gm-D5w 50 ml Bag** 1 G/50 ML IVPB IV SCH (10:35)
[2022-02-06] MEDS: Protonix 40MG Tablet PO SCH (10:35)
[2022-02-06] MEDS: Lexapro 10 MG PO SCH (10:35)
[2022-02-06] MEDS: ZYLOPRIM 100 MG PO SCH (10:37)
[2022-02-06] MEDS: DESYREL 50 MG PO SCH (21:06)
[2022-02-07 04:57] LABS: Absolute Neutrophil Ct (ANC) 6.65 (1.4-6.9); Basophil (Absolute #) 0.09 (0-0.4); Eosinophil % 0.9 % (0.00-5.0); Eosinophil (Absolute #) 0.08 (0-0.5); Hemoglobin 9.7 gm/dl (12.5-18.0); Lymphocytes % 22.6 % (24.0-44.0); Mean Cell Volume 91.2 fl (78-100); Mean Corpuscular Hemoglobin 27.6 pg (26-32); Mean Corpuscular Hgb Concent. 30.3 g/dl (32-36); Mean Platelet Volume 10.9 fl (7.5-11.0); Monocyte (Absolute #) 0.36 (0.0-1.3); Monocytes % 3.9 % (0.0-12.0); Neutrophil % 71.6 % (36.0-66.0); Platelet Count 307 K/mm3 (150-450); Red Blood Count 3.51 M/mm3 (4.1-5.6); Red Cell Distribution Width 19.8 % (11.5-14.0); White Blood Count 9.3 K/mm3 (4.0-10.5)
[2022-02-07 05:09] LABS: ANION GAP 9.9 MEQ/L (5-15); Calcium 8.4 mg/dL (8.4-10.2); Creatinine 1 1.37 mg/dL (0.66-1.25); EST GLOMERULAR FILTRATION RATE 52.6 ML/MIN; Potassium 3.8 mmol/L (3.5-5.1)
[2022-02-07] MEDS: VENTOLIN COMMON CANISTER IH SCH ×4 (07:04→19:05)
--- NOTE | 2022-02-07 08:36 | PCM.NOTE ---
Date and Time: 02/07/22832 Subjective Assessment: doing well this morning, still has some weakness. oxygen is currently off but states his sat dropped previously after being off of oxygen Objective Exam General Appearance: no apparent distress, alert Neurologic Exam: alert, oriented x 3, cooperative, normal mood/affect, nml cerebellar function, sensation nml, No motor deficits Respiratory Exam: normal breath sounds, lungs clear, crackles/rales (improved aeration and decrease in right lung crackles), No respiratory distress Cardiovascular Exam: regular rate/rhythm, normal heart sounds OBJECTIVE DATA Vital Signs: Vital Signs - 24 hr Temp Pulse Resp BP Pulse Ox 02/07/22 08:00 97.8 F 93 H 16 129/85 94 L 02/07/22 07:09 96 H 16 96 02/07/22 04:20 97.8 F 70 18 115/70 98 02/06/22 23:35 97.9 F 86 20 122/69 96 02/06/22 20:06 100 H 20 95 02/06/22 19:40 98.0 F 94 H 20 93/57 97 02/06/22 16:00 96.8 F 93 H 18 121/72 98 02/06/22 14:35 90 18 97 02/06/22 12:00 97.9 F 97 H 16 116/65 96 02/06/22 11:15 102 H 18 97 Pain Assessment - Last Documented Pain Intensity 0 Intake and Output: Intake & Output 02/04/22 02/05/22 02/06/22 02/07/22 11:59 11:59 11:59 11:59 Intake Total 1220 980 Output Total 7767 2125 Balance -750 -1145 Weight 111.7 kg 103.4 kg 100.3 kg Lab Results: Lab Results-Last 24 Hours 02/07/22 02/07/22 Range/Units 04:20 04:20 WBC 9.3 (4.0-10.5) K/mm3 RBC 3.51 L (4.1-5.6) M/mm3 Hgb 9.7 L (12.5-18.0) gm/dl Hct 32.0 L (42-50) % MCV 91.2 (78-100) fl MCH 27.6 (26-32) pg MCHC 30.3 L (32-36) g/dl RDW 19.8 H (11.5-14.0) % Plt Count 307 (150-450) K/mm3 MPV 10.9 (7.5-11.0) fl Gran % 71.6 H (36.0-66.0) % Eos # (Auto) 0.08 (0-0.5) Absolute Lymphs (auto) 2.10 (1.0-4.6) Absolute Monos (auto) 0.36 (0.0-1.3) Lymphocytes % 22.6 L (24.0-44.0) % Monocytes % 3.9 (0.0-12.0) % Eosinophils % 0.9 (0.00-5.0) % Basophils % 1.0 (0.0-0.4) % Absolute Granulocytes 6.65 (1.4-6.9) Basophils # 0.09 (0-0.4) Sodium 138 (137-145) mmol/L Potassium 3.8 (3.5-5.1) mmol/L Chloride 101 (98-107) mmol/L Carbon Dioxide 30 (22-30) mmol/L Anion Gap 9.9 (5-15) MEQ/L BUN 19 (9-20) mg/dL Creatinine 1.37 H (0.66-1.25) mg/dL Estimated GFR 52.6 ML/MIN Glucose 97 (74-106) mg/dL Calcium 8.4 (8.4-10.2) mg/dL NT-Pro-B Natriuret Pep 8590 H (0-1800) pg/mL Radiology Exams: Radiology Procedures Category Date Time Status CHEST 1 VIEW (PORTABLE) Stat Exams 02/05/22 09:43 Completed Multi-Disciplinary Progress Notes: Multi-Disciplinary Progress Notes 02/06/22 11:20 Case Management Note by Ashley Cortez PATIENT HAS [facility] FOR [facility]ICAL THERAP[facility]. THEY WERE NOTIFIED PATIENT IS HERE OBS. THEY WILL NEED NOTIFIED AT TIME OF DC AT [phone]. THEY WILL NEED FAXED THE DC INSTRUCTIONS, DC MED LIST, DC SUMMARY ( IF AVAILABLE) TO [phone] Initialized on 02/06/22 11:20 - END OF NOTE Assessment/Plan (1) CHF exacerbation Current Visit: Yes Status: Acute Assessment & Plan: appears euvolemic, will d/c lovenox due to drop in hgb. patient is on jakafi as well, will monitor h/h Code(s): I50.9 - HEART FAILURE, UNSPECIFIED (2) Right upper lobe pneumonia Current Visit: Yes Status: Acute Assessment & Plan: on rocephin, clinically improve. likely [facility] Code(s): J18.9 - PNEUMONIA, UNSPECIFIED ORGANISM
[2022-02-07] MEDS: ZYLOPRIM 100 MG PO SCH (09:49)
[2022-02-07] MEDS: Klor Con 10 MEQ PO SCH (09:49)
[2022-02-07] MEDS: Lexapro 10 MG PO SCH (09:49)
[2022-02-07] MEDS: LASIX 20 MG PO SCH (09:49)
[2022-02-07] MEDS: ROCEPHIN 1 Gm-D5w 50 ml Bag** 1 G/50 ML IVPB IV SCH (09:49)
[2022-02-07] MEDS: Protonix 40MG Tablet PO SCH (09:49)
[2022-02-07] MEDS: PATIENT OWN MEDICATION PO SCH ×2 (09:50→21:44)
[2022-02-07] MEDS: ULTRAM 50 MG PO PRN ×2 (10:01→21:44)
[2022-02-07 16:58] LABS: Slide Review 1 YES
[2022-02-07] MEDS ORDERED: VENTOLIN COMMON CANISTER IH PRN (20:05)
[2022-02-07] MEDS: DESYREL 50 MG PO SCH (21:44)
[2022-02-08 06:17] LABS: Hematocrit 36.8 % (42-50); Mean Cell Volume 91.3 fl (78-100); Mean Corpuscular Hemoglobin 27.3 pg (26-32); Mean Corpuscular Hgb Concent. 29.9 g/dl (32-36); Mean Platelet Volume 10.8 fl (7.5-11.0); Platelet Count 347 K/mm3 (150-450); Red Blood Count 4.03 M/mm3 (4.1-5.6); Red Cell Distribution Width 20.5 % (11.5-14.0); White Blood Count 12.1 K/mm3 (4.0-10.5)
[2022-02-08] MEDS: VENTOLIN COMMON CANISTER IH SCH ×4 (07:29→19:53)
[2022-02-08 07:36] LABS: ANION GAP 12.6 MEQ/L (5-15); Calcium 8.9 mg/dL (8.4-10.2); Creatinine 1 1.47 mg/dL (0.66-1.25); EST GLOMERULAR FILTRATION RATE 48.5 ML/MIN; Potassium 4.1 mmol/L (3.5-5.1)
[2022-02-08] MEDS: ROCEPHIN 1 Gm-D5w 50 ml Bag** 1 G/50 ML IVPB IV SCH (09:05)
[2022-02-08] MEDS: LASIX 20 MG PO SCH (09:06)
[2022-02-08] MEDS: Klor Con 10 MEQ PO SCH (09:06)
[2022-02-08] MEDS: ZYLOPRIM 100 MG PO SCH (09:06)
[2022-02-08] MEDS: Lexapro 10 MG PO SCH (09:06)
[2022-02-08] MEDS: Protonix 40MG Tablet PO SCH (09:06)
[2022-02-08] MEDS: PATIENT OWN MEDICATION PO SCH ×2 (09:06→21:44)
[2022-02-08] MEDS: ULTRAM 50 MG PO PRN ×2 (09:08→21:44)
[2022-02-08 09:10] LABS: ATYPICAL LYMPHS 3 %; BAND 1 % (0.0-2.0); Eosinophil 1 % (0.00-3.0); Lymphocytes 21 % (24-44); Monocyte 6 % (0.0-12.0); Neutrophils 68 % (36.-66.); Total Cells Counted 100
[2022-02-08 09:11] LABS: ANISOCYTOSIS 2+; Platelet Estimate NORMAL (NORMAL); Poikilocytosis 1+; Schistocytes 1+; Toxic Granulation 2+
--- NOTE | 2022-02-08 10:00 | PCM.NOTE ---
Date and Time: 02/08/22957 Subjective Assessment: doing ok - Review of Systems Constitutional: No Fever, No Chills Eyes: No Symptoms Ears, Nose, & Throat: No Symptoms Respiratory: No Cough, No Short Of Breath Cardiac: No Chest Pain, No Edema, No Syncope Abdominal/Gastrointestinal: No Abdominal Pain, No Nausea, No Vomiting, No Diarrhea Genitourinary Symptoms: No Dysuria Musculoskeletal: No Back Pain, No Neck Pain Skin: No Rash Neurological: No Dizziness, No Focal Weakness, No Sensory Changes Psychological: No Symptoms Endocrine: No Symptoms Hematologic/Lymphatic: No Symptoms Immunological/Allergic: No Symptoms Objective Exam General Appearance: no apparent distress, alert Neurologic Exam: alert, oriented x 3, cooperative, normal mood/affect, nml cerebellar function, sensation nml, No motor deficits Skin Exam: normal color, warm, dry Eye Exam: PERRL, EOMI, eyes nml inspection Ears, Nose, Throat Exam: normal ENT inspection, pharynx normal, moist mucous membranes Neck Exam: normal inspection, non-tender, supple, full range of motion Respiratory Exam: normal breath sounds, lungs clear, No respiratory distress Cardiovascular Exam: regular rate/rhythm, normal heart sounds Gastrointestinal/Abdomen Exam: soft, No tenderness, No mass Extremity Exam: normal inspection, normal range of motion Back Exam: normal inspection, normal range of motion, No CVA tenderness, No vertebral tenderness Male Genitalia Exam: deferred Rectal Exam: deferred OBJECTIVE DATA Vital Signs: Vital Signs - 24 hr Temp Pulse Resp BP Pulse Ox 02/08/22 08:00 97.1 F 91 H 21 109/58 98 02/08/22 07:35 86 18 96 02/08/22 05:00 97.3 F 91 H 20 117/70 95 02/08/22 01:00 96.9 F 88 14 99/56 90 L 02/07/22 21:09 98.1 F 103 H 18 119/71 97 02/07/22 19:05 99 H 17 96 02/07/22 16:00 97.3 F 97 H 18 120/73 97 02/07/22 12:00 97.8 F 90 18 144/60 96 02/07/22 10:50 94 H 18 96 Pain Assessment - Last Documented Pain Intensity 0 Intake and Output: Intake & Output 02/05/22 02/06/22 02/07/22 02/08/22 11:59 11:59 11:59 11:59 Intake Total 1220 1340 1850 Output Total 7914 7460 695 Balance -750 -1085 1155 Weight 111.7 kg 103.4 kg 100.3 kg 100.3 kg Lab Results: Lab Results-Last 24 Hours 02/07/22 02/08/22 02/08/22 Range/Units 04:20 05:30 05:30 WBC 12.1 H (4.0-10.5) K/mm3 RBC 4.03 L (4.1-5.6) M/mm3 Hgb 11.0 L (12.5-18.0) gm/dl Hct 36.8 L (42-50) % MCV 91.3 (78-100) fl MCH 27.3 (26-32) pg MCHC 29.9 L (32-36) g/dl RDW 20.5 H (11.5-14.0) % Plt Count 347 (150-450) K/mm3 MPV 10.8 (7.5-11.0) fl Segmented Neutrophils 68 H (36.-66.) % Band Neutrophils 1 (0.0-2.0) % Lymphocytes (Manual) 21 L (24-44) % Monocytes (Manual) 6 (0.0-12.0) % Eosinophils (Manual) 1 (0.00-3.0) % Atypical Lymphocytes 3 % Toxic Granulation 2+ Platelet Estimate NORMAL (NORMAL) RBC Morphology ABNORMAL Poikilocytosis 1+ Anisocytosis 2+ Schistocytes 1+ Sodium 140 (137-145) mmol/L Potassium 4.1 (3.5-5.1) mmol/L Chloride 101 (98-107) mmol/L Carbon Dioxide 31 H (22-30) mmol/L Anion Gap 12.6 (5-15) MEQ/L BUN 19 (9-20) mg/dL Creatinine 1.47 H (0.66-1.25) mg/dL Estimated GFR 48.5 ML/MIN Glucose 98 (74-106) mg/dL Calcium 8.9 (8.4-10.2) mg/dL NT-Pro-B Natriuret Pep 7610 H (0-1800) pg/mL Slides for Path Review YES Multi-Disciplinary Progress Notes: Multi-Disciplinary Progress Notes 02/07/22 10:50 (created 02/07/22 11:46) Respiratory Note by Riana Brothers The patient's O2 sat is 96% on room air at rest. Patient ambulated and O2 sat with ambulation on room air is 93% Initialized on 02/07/22 11:46 - END OF NOTE Assessment/Plan (1) CHF exacerbation Current Visit: Yes Status: Acute Qualifiers: Heart failure type: combined systolic and diastolic Qualified Code(s): I50.43 - Acute on chronic combined systolic (congestive) and diastolic (congestive) heart failure Assessment & Plan: Chief Complaint Diagnosis CHF EXAC, PNEUMONIA Allergies Allergy/AdvReac Type Severity Reaction Status Date / Time No Known Drug Allergies Allergy Verified 02/05/22 12:57 Vital Signs (Last 24 hours) Temp Pulse Resp BP Pulse Ox 02/08/22 08:00 97.1 F 91 H 21 109/58 98 02/08/22 07:35 86 18 96 02/08/22 05:00 97.3 F 91 H 20 117/70 95 02/08/22 01:00 96.9 F 88 14 99/56 90 L 02/07/22 21:09 98.1 F 103 H 18 119/71 97 02/07/22 19:05 99 H 17 96 02/07/22 16:00 97.3 F 97 H 18 120/73 97 02/07/22 12:00 97.8 F 90 18 144/60 96 02/07/22 10:50 94 H 18 96 Home Medications Medication Instructions Recorded Confirmed Last Taken Type Albuterol Sulfate [Albuterol 90 mcg IH Q4H PRN PRN 02/05/22 02/05/22 Unknown History Sulfate Hfa] Allopurinol 100 mg [Zyloprim 100 mg PO DAILY 02/05/22 02/05/22 02/05/22 Hist ory 100 mg] Escitalopram Oxalate 10 mg 10 mg PO DAILY 02/05/22 02/05/22 02/05/22 History [Lexapro 10 MG] Ferrous Sulfate [Andi-Time] 325 mg PO DAILY 02/05/22 02/05/22 02/05/22 History Furosemide 20 mg [Lasix 20 20 mg PO DAILY 02/05/22 02/05/22 Unknown History mg] Lovastatin [Altoprev] 20 mg PO HS 02/05/22 02/05/22 Unknown History Multivitamin [Multi-Vitamin Daily] 1 each PO DAILY 02/05/22 02/05/22 02/05/22 History PANTOPRAZOLE 40 mg Tablet 40 mg PO DAILY 02/05/22 02/05/22 02/05/22 History [Protonix 40MG Tablet] Ropinirole HCl 0.5 mg PO DAILY PRN PRN 02/05/22 02/05/22 Unknown History Ruxolitinib Phosphate [Jakafi] 10 mg PO BID 02/05/22 02/05/22 02/05/22 History Tramadol HCl 50 mg [Ultram 50 50 mg PO Q6HPRN PRN 02/05/22 02/05/22 Unknown History mg] Trazodone HCl 50 mg PO HS 02/05/22 02/05/22 Unknown History Valsartan 40 mg PO DAILY 02/05/22 02/05/22 02/05/22 History Vit C/E/Zn/Coppr/Lutein/Zeaxan 1 cap PO BID 02/05/22 02/05/22 02/05/22 History [Preservision Areds 2 Softgel] Current Medications Generic Name Dose Route Start Last Admin Trade Name Freq PRN Reason Stop Dose Admin Acetaminophen 650 mg 02/05/22 12:35 Acetaminophen 325 Mg Tablet PO 03/07/22 12:34 Q4H PRN PRN PAIN AND/OR FEVER Albuterol Sulfate 2 puff 02/08/22 07:00 02/08/22 07:29 Albuterol Common Canister Inhaler 03/10/22 06:59 2 puff QIDRT MANNY Administration Albuterol Sulfate 2 puff 02/07/22 20:05 Albuterol Common Canister Inhaler 03/09/22 20:04 Q4H PRN PRN SHORTNESS OF BREATH/WHEEZING Allopurinol 100 mg 02/06/22 10:00 02/08/22 09:06 Allopurinol 100 Mg Tablet PO 03/08/22 09:59 100 mg DAILY MANNY Administration Escitalopram Oxalate 10 mg 02/06/22 10:00 02/08/22 09:06 Escitalopram Oxalate 10 Mg Tablet PO 03/08/22 09:59 10 mg DAILY MANNY Administration Furosemide 20 mg 02/07/22 10:00 02/08/22 09:06 Furosemide 20 Mg Tablet PO 03/09/22 09:59 20 mg DAILY MANNY Administration Guaifenesin/Codeine Phosphate 5 ml 02/05/22 16:30 02/05/22 21:31 Guaifenesin/Codeine Phosphate 5 Ml Udcup PO 03/07/22 16:29 5 ml Q4H PRN PRN Administration COUGH Ceftriaxone Sodium/Dextrose 1 g in 50 mls @ 100 mls/hr 02/05/22 17:00 02/08/22 09:05 Rocephin 1 Gm-D5w 50 Ml Bag IV 02/08/22 16:59 100 mls/hr Q24H10 MANNY Administration Morphine Sulfate 2 mg 02/05/22 12:35 Morphine Sulfate 2 Mg/Ml Inj IV 02/10/22 12:34 Q4H PRN PRN PAIN Ondansetron HCl 4 mg 02/05/22 12:35 02/05/22 18:27 Ondansetron Hcl 4 Mg/2 Ml Vial IV 03/07/22 12:34 4 mg Q6H PRN PRN Administration NAUSEA/VOMITING Pantoprazole Sodium 40 mg 02/06/22 10:00 02/08/22 09:06 Protonix (Pantoprazole) 40 Mg Tablet PO 03/08/22 09:59 40 mg DAILY MANNY Administration Jakafi 10mg Tablet 1 each 02/06/22 10:00 02/08/22 09:06 PO 03/08/22 09:59 1 each BID MANNY Administration Potassium Chloride 10 meq 02/07/22 10:00 02/08/22 09:06 Potassium Chloride 10 Meq Tablet PO 03/09/22 09:59 10 meq DAILY MANNY Administration Ropinirole HCl 1 mg 02/05/22 15:45 02/05/22 21:30 Ropinirole Hcl 0.5 Mg Tablet PO 03/07/22 15:28 1 mg DAILY PRN PRN Administration RESTLESS LEG Tramadol HCl 50 mg 02/05/22 15:25 02/08/22 09:08 Tramadol Hcl 50 Mg Tablet PO 03/07/22 15:24 50 mg Q6HPRN PRN Administration PAIN Trazodone HCl 50 mg 02/05/22 22:00 02/07/22 21:44 Trazodone Hcl 50 Mg Tablet PO 03/07/22 21:59 50 mg HS MANNY Administration Discontinued Medications Generic Name Dose Route Start Last Admin Trade Name Freq PRN Reason Stop Dose Admin Albuterol Sulfate 4 puff 02/05/22 15:00 02/07/22 19:05 Albuterol Common Canister Inhaler 03/07/22 14:59 4 puff QIDRT MANNY Administration Albuterol Sulfate 4 puff 02/05/22 13:04 Albuterol Common Canister Inhaler 03/07/22 13:03 Q4H PRN PRN SHORTNESS OF BREATH/WHEEZING Albuterol/Ipratropium 3 ml 02/05/22 15:00 Ipratropium/Albuterol Sulfate 3 Ml Ampul.Neb 03/07/22 14:59 QIDRT MANNY Aspirin 324 mg 02/05/22 09:44 02/05/22 09:48 Aspirin 81 Mg Tab.Chew PO 02/05/22 09:45 324 mg STAT ONE Administration Enoxaparin Sodium 40 mg 02/05/22 13:00 02/06/22 10:34 Enoxaparin Sodium 40 Mg/0.4 Ml Syringe SQ 03/07/22 12:59 40 mg DAILY MANNY Administration Furosemide 60 mg 02/05/22 09:43 02/05/22 09:57 Furosemide 40 Mg/4 Ml Vial IV 02/05/22 09:44 60 mg STAT ONE Administration Furosemide Confirm 02/05/22 09:47 Furosemide 40 Mg/4 Ml Vial Administered 02/05/22 09:48 Dose 80 mg .ROUTE .STK-MED ONE Furosemide 40 mg 02/05/22 22:00 02/06/22 21:07 Furosemide 40 Mg/4 Ml Vial IV 03/07/22 21:59 40 mg Q12HT MANNY Administration Azithromycin 500 mg in 250 mls @ 250 mls/hr 02/05/22 17:00 02/05/22 17:12 Zithromax 500 Mg/ 250 Ml Nacl Premix IV 03/07/22 16:59 250 mls/hr Q24H10 MANNY Administration Miscellaneous Information 1 each 02/05/22 15:45 Medication Intervention 1 Each Each PO 03/07/22 15:44 .RN TO CHECK ON MANNY Pantoprazole Sodium 40 mg 02/05/22 13:00 02/05/22 13:51 Pantoprazole 40 Mg Vial IV 03/07/22 12:59 40 mg Q24H10 MANNY Administration Potassium Chloride 10 meq 02/05/22 22:00 02/06/22 21:06 Potassium Chloride 10 Meq Tablet PO 03/07/22 21:59 10 meq BID MANNY Administration Ropinirole HCl 0.5 mg 02/05/22 15:29 Ropinirole Hcl 0.5 Mg Tablet PO 03/07/22 15:28 DAILY PRN PRN RESTLESS LEG Intake & Output (Last 24 hours) 02/05/22 02/06/22 02/07/22 02/08/22 11:59 11:59 11:59 11:59 Intake Total 1220 1340 1850 Output Total 1970 4265 695 Balance -750 -1085 1155 Weight 111.7 kg 103.4 kg 100.3 kg 100.3 kg Laboratory Results (Last 24 hours) 02/08/22 02/08/22 02/07/22 05:30 05:30 04:20 WBC 12.1 H RBC 4.03 L Hgb 11.0 L Hct 36.8 L MCV 91.3 MCH 27.3 MCHC 29.9 L RDW 20.5 H Plt Count 347 MPV 10.8 Segmented Neutrophils 68 H Band Neutrophils 1 Lymphocytes (Manual) 21 L Monocytes (Manual) 6 Eosinophils (Manual) 1 Atypical Lymphocytes 3 Toxic Granulation 2+ Platelet Estimate NORMAL RBC Morphology ABNORMAL Poikilocytosis 1+ Anisocytosis 2+ Schistocytes 1+ Sodium 140 Potassium 4.1 Chloride 101 Carbon Dioxide 31 H Anion Gap 12.6 BUN 19 Creatinine 1.47 H Estimated GFR 48.5 Glucose 98 Calcium 8.9 NT-Pro-B Natriuret Pep 7610 H Slides for Path Review YES Orders (Last 24 hours) Category Date Time Status BMP AM.LAB Lab 02/08/22 05:30 Completed CBC W DIFF AM.LAB Lab 02/08/22 05:30 Completed Manual Differential NC Routine Lab 02/08/22 05:30 Completed NT PRO BNP AM.LAB Lab 02/08/22 05:30 Completed Albuterol Common Canister [Ventolin Common Canister* Med 02/07/22 20:05 Active ] 2 puff IH Q4H PRN PRN Albuterol Common Canister [Ventolin Common Canister* Med 02/08/22 07:00 Active ] 2 puff IH QIDRT Furosemide 20 mg [Lasix 20 mg] Med 02/07/22 10:00 Active 20 mg PO DAILY Potassium Chloride 10 Meq Tab* [Klor Con 10 MEQ] Med 02/07/22 10:00 Active 10 meq PO DAILY Pulse Oximetry .overnight RT 02/08/22 06:59 Active Qualify for Home Oxygen ROUTINE RT 02/07/22 10:22 Active Patient Care Notes (Last 24 hours) 02/08/22 06:57 Nursing Note by Sandra Kolb ROUNDED WITH DR. MALHOTRA. NIGHT TIME NURSING STAFF REPORTED PATIENT O2 SATURATIONS DROPPED IN THE NIGHT. DR. MALHOTRA WANTS AN OVERNIGHT PULSE OX TONIGHT Initialized on 02/08/22 06:57 - END OF NOTE 02/07/22 10:50 (created 02/07/22 11:46) Respiratory Note by Riana Brothers The patient's O2 sat is 96% on room air at rest. Patient ambulated and O2 sat with ambulation on room air is 93% Initialized on 02/07/22 11:46 - END OF NOTE Code(s): I50.9 - HEART FAILURE, UNSPECIFIED (2) Right upper lobe pneumonia Current Visit: Yes Status: Acute Qualifiers: Pneumonia type: due to unspecified organism Qualified Code(s): J18.9 - Pneumonia, unspecified organism Code(s): J18.9 - PNEUMONIA, UNSPECIFIED ORGANISM
[2022-02-08] MEDS: Zofran 4 MG/2 ML VIAL IV PRN (20:03)
[2022-02-08] MEDS: DESYREL 50 MG PO SCH (21:44)
[2022-02-09] MEDS: VENTOLIN COMMON CANISTER IH SCH ×4 (06:56→19:06)
--- NOTE | 2022-02-09 08:45 | PCM.NOTE ---
Date and Time: 02/09/22843 Subjective Assessment: doing better - Review of Systems Constitutional: No Fever, No Chills Eyes: No Symptoms Ears, Nose, & Throat: No Symptoms Respiratory: No Cough, No Short Of Breath Cardiac: No Chest Pain, No Edema, No Syncope Abdominal/Gastrointestinal: No Abdominal Pain, No Nausea, No Vomiting, No Diarrhea Genitourinary Symptoms: No Dysuria Musculoskeletal: No Back Pain, No Neck Pain Skin: No Rash Neurological: No Dizziness, No Focal Weakness, No Sensory Changes Psychological: No Symptoms Endocrine: No Symptoms Hematologic/Lymphatic: No Symptoms Immunological/Allergic: No Symptoms Objective Exam General Appearance: no apparent distress, alert Neurologic Exam: alert, oriented x 3, cooperative, normal mood/affect, nml cerebellar function, sensation nml, No motor deficits Skin Exam: normal color, warm, dry Eye Exam: PERRL, EOMI, eyes nml inspection Ears, Nose, Throat Exam: normal ENT inspection, pharynx normal, moist mucous membranes Neck Exam: normal inspection, non-tender, supple, full range of motion Respiratory Exam: normal breath sounds, lungs clear, No respiratory distress Cardiovascular Exam: regular rate/rhythm, normal heart sounds Gastrointestinal/Abdomen Exam: soft, No tenderness, No mass Extremity Exam: normal inspection, normal range of motion Back Exam: normal inspection, normal range of motion, No CVA tenderness, No vertebral tenderness Male Genitalia Exam: deferred Rectal Exam: deferred OBJECTIVE DATA Vital Signs: Vital Signs - 24 hr Temp Pulse Resp BP Pulse Ox 02/09/22 06:57 89 16 93 L 02/09/22 05:00 97.1 F 93 H 22 118/65 92 L 02/09/22 01:00 96.9 F 95 H 16 116/68 86 L 02/08/22 21:00 97.3 F 100 H 26 H 124/75 94 L 02/08/22 19:53 108 H 18 97 02/08/22 16:00 97.3 F 97 H 24 121/71 95 02/08/22 15:01 97 H 18 96 02/08/22 12:00 97.5 F 94 H 31 H 120/75 95 02/08/22 11:20 82 18 95 Pain Assessment - Last Documented Pain Intensity 0 Intake and Output: Intake & Output 02/06/22 02/07/22 02/08/22 02/09/22 11:59 11:59 11:59 11:59 Intake Total 1220 1340 1850 660 Output Total 1969 5645 695 900 Balance -750 -1085 1155 -240 Weight 103.4 kg 100.3 kg 100.3 kg Lab Results: Lab Results-Last 24 Hours 02/08/22 Range/Units 05:30 Segmented Neutrophils 68 H (36.-66.) % Band Neutrophils 1 (0.0-2.0) % Lymphocytes (Manual) 21 L (24-44) % Monocytes (Manual) 6 (0.0-12.0) % Eosinophils (Manual) 1 (0.00-3.0) % Atypical Lymphocytes 3 % Toxic Granulation 2+ Platelet Estimate NORMAL (NORMAL) RBC Morphology ABNORMAL Poikilocytosis 1+ Anisocytosis 2+ Schistocytes 1+ Assessment/Plan (1) CHF exacerbation Current Visit: Yes Status: Acute Qualifiers: Heart failure type: combined systolic and diastolic Qualified Code(s): I50.43 - Acute on chronic combined systolic (congestive) and diastolic (congestive) heart failure Assessment & Plan: Chief Complaint Diagnosis CHF EXAC, PNEUMONIA Allergies Allergy/AdvReac Type Severity Reaction Status Date / Time No Known Drug Allergies Allergy Verified 02/05/22 12:57 Vital Signs (Last 24 hours) Temp Pulse Resp BP Pulse Ox 02/09/22 06:57 89 16 93 L 02/09/22 05:00 97.1 F 93 H 22 118/65 92 L 02/09/22 01:00 96.9 F 95 H 16 116/68 86 L 02/08/22 21:00 97.3 F 100 H 26 H 124/75 94 L 02/08/22 19:53 108 H 18 97 02/08/22 16:00 97.3 F 97 H 24 121/71 95 02/08/22 15:01 97 H 18 96 02/08/22 12:00 97.5 F 94 H 31 H 120/75 95 02/08/22 11:20 82 18 95 Home Medications Medication Instructions Recorded Confirmed Last Taken Type Albuterol Sulfate [Albuterol 90 mcg IH Q4H PRN PRN 02/05/22 02/05/22 Unknown History Sulfate Hfa] Allopurinol 100 mg [Zyloprim 100 mg PO DAILY 02/05/22 02/05/22 02/05/22 History 100 mg] Escitalopram Oxalate 10 mg 10 mg PO DAILY 02/05/22 02/05/22 02/05/22 History [Lexapro 10 MG] Ferrous Sulfate [Andi-Time] 325 mg PO DAILY 02/05/22 02/05/22 02/05/22 History Furosemide 20 mg [Lasix 20 20 mg PO DAILY 02/05/22 02/05/22 Unknown History mg] Lovastatin [Altoprev] 20 mg PO HS 02/05/22 02/05/22 Unknown History Multivitamin [Multi-Vitamin Daily] 1 each PO DAILY 02/05/22 02/05/22 02/05/22 History PANTOPRAZOLE 40 mg Tablet 40 mg PO DAILY 02/05/22 02/05/22 02/05/22 History [Protonix 40MG Tablet] Ropinirole HCl 0.5 mg PO DAILY PRN PRN 02/05/22 02/05/22 Unknown History Ruxolitinib Phosphate [Jakafi] 10 mg PO BID 02/05/22 02/05/22 02/05/22 History Tramadol HCl 50 mg [Ultram 50 50 mg PO Q6HPRN PRN 02/05/22 02/05/22 Unknown History mg] Trazodone HCl 50 mg PO HS 02/05/22 02/05/22 Unknown History Valsartan 40 mg PO DAILY 02/05/22 02/05/22 02/05/22 History Vit C/E/Zn/Coppr/Lutein/Zeaxan 1 cap PO BID 02/05/22 02/05/22 02/05/22 History [Preservision Areds 2 Softgel] Current Medications Generic Name Dose Route Start Last Admin Trade Name Freq PRN Reason Stop Dose Admin Acetaminophen 650 mg 02/05/22 12:35 Acetaminophen 325 Mg Tablet PO 03/07/22 12:34 Q4H PRN PRN PAIN AND/OR FEVER Albuterol Sulfate 2 puff 02/08/22 07:00 02/09/22 06:56 Albuterol Common Canister Inhaler 03/10/22 06:59 2 puff QIDRT MANNY Administration Albuterol Sulfate 2 puff 02/07/22 20:05 Albuterol Common Canister Inhaler 03/09/22 20:04 Q4H PRN PRN SHORTNESS OF BREATH/WHEEZING Allopurinol 100 mg 02/06/22 10:00 02/08/22 09:06 Allopurinol 100 Mg Tablet PO 03/08/22 09:59 100 mg DAILY MANNY Administration Escitalopram Oxalate 10 mg 02/06/22 10:00 02/08/22 09:06 Escitalopram Oxalate 10 Mg Tablet PO 03/08/22 09:59 10 mg DAILY MANNY Administration Furosemide 20 mg 02/07/22 10:00 02/08/22 09:06 Furosemide 20 Mg Tablet PO 03/09/22 09:59 20 mg DAILY MANNY Administration Guaifenesin/Codeine Phosphate 5 ml 02/05/22 16:30 02/05/22 21:31 Guaifenesin/Codeine Phosphate 5 Ml Udcup PO 03/07/22 16:29 5 ml Q4H PRN PRN Administration COUGH Ceftriaxone Sodium/Dextrose 1 g in 50 mls @ 100 mls/hr 02/05/22 17:00 02/08/22 09:05 Rocephin 1 Gm-D5w 50 Ml Bag IV 02/09/22 16:59 100 mls/hr Q24H10 MANNY Administration Morphine Sulfate 2 mg 02/05/22 12:35 Morphine Sulfate 2 Mg/Ml Inj IV 02/10/22 12:34 Q4H PRN PRN PAIN Ondansetron HCl 4 mg 02/05/22 12:35 02/08/22 20:03 Ondansetron Hcl 4 Mg/2 Ml Vial IV 03/07/22 12:34 4 mg Q6H PRN PRN Administration NAUSEA/VOMITING Pantoprazole Sodium 40 mg 02/06/22 10:00 02/08/22 09:06 Protonix (Pantoprazole) 40 Mg Tablet PO 03/08/22 09:59 40 mg DAILY MANNY Administration Jakafi 10mg Tablet 1 each 02/06/22 10:00 02/08/22 21:44 PO 03/08/22 09:59 1 each BID MANNY Administration Potassium Chloride 10 meq 02/07/22 10:00 02/08/22 09:06 Potassium Chloride 10 Meq Tablet PO 03/09/22 09:59 10 meq DAILY MANNY Administration Ropinirole HCl 1 mg 02/05/22 15:45 02/05/22 21:30 Ropinirole Hcl 0.5 Mg Tablet PO 03/07/22 15:28 1 mg DAILY PRN PRN Administration RESTLESS LEG Tramadol HCl 50 mg 02/05/22 15:25 02/08/22 21:44 Tramadol Hcl 50 Mg Tablet PO 03/07/22 15:24 50 mg Q6HPRN PRN Administration PAIN Trazodone HCl 50 mg 02/05/22 22:00 02/08/22 21:44 Trazodone Hcl 50 Mg Tablet PO 03/07/22 21:59 50 mg HS MANNY Administration Discontinued Medications Generic Name Dose Route Start Last Admin Trade Name Freq PRN Reason Stop Dose Admin Albuterol Sulfate 4 puff 02/05/22 15:00 02/07/22 19:05 Albuterol Common Canister Inhaler 03/07/22 14:59 4 puff QIDRT MANNY Administration Albuterol Sulfate 4 puff 02/05/22 13:04 Albuterol Common Canister Inhaler 03/07/22 13:03 Q4H PRN PRN SHORTNESS OF BREATH/WHEEZING Albuterol/Ipratropium 3 ml 02/05/22 15:00 Ipratropium/Albuterol Sulfate 3 Ml Ampul.Neb 03/07/22 14:59 QIDRT MANNY Aspirin 324 mg 02/05/22 09:44 02/05/22 09:48 Aspirin 81 Mg Tab.Chew PO 02/05/22 09:45 324 mg STAT ONE Administration Enoxaparin Sodium 40 mg 02/05/22 13:00 02/06/22 10:34 Enoxaparin Sodium 40 Mg/0.4 Ml Syringe SQ 03/07/22 12:59 40 mg DAILY MANNY Administration Furosemide 60 mg 02/05/22 09:43 02/05/22 09:57 Furosemide 40 Mg/4 Ml Vial IV 02/05/22 09:44 60 mg STAT ONE Administration Furosemide Confirm 02/05/22 09:47 Furosemide 40 Mg/4 Ml Vial Administered 02/05/22 09:48 Dose 80 mg .ROUTE .STK-MED ONE Furosemide 40 mg 02/05/22 22:00 02/06/22 21:07 Furosemide 40 Mg/4 Ml Vial IV 03/07/22 21:59 40 mg Q12HT MANNY Administration Azithromycin 500 mg in 250 mls @ 250 mls/hr 02/05/22 17:00 02/05/22 17:12 Zithromax 500 Mg/ 250 Ml Nacl Premix IV 03/07/22 16:59 250 mls/hr Q24H10 MANNY Administration Miscellaneous Information 1 each 02/05/22 15:45 Medication Intervention 1 Each Each PO 03/07/22 15:44 .RN TO CHECK ON MANNY Pantoprazole Sodium 40 mg 02/05/22 13:00 02/05/22 13:51 Pantoprazole 40 Mg Vial IV 03/07/22 12:59 40 mg Q24H10 MANNY Administration Potassium Chloride 10 meq 02/05/22 22:00 02/06/22 21:06 Potassium Chloride 10 Meq Tablet PO 03/07/22 21:59 10 meq BID MANNY Administration Ropinirole HCl 0.5 mg 02/05/22 15:29 Ropinirole Hcl 0.5 Mg Tablet PO 03/07/22 15:28 DAILY PRN PRN RESTLESS LEG Intake & Output (Last 24 hours) 02/06/22 02/07/22 02/08/22 02/09/22 11:59 11:59 11:59 11:59 Intake Total 1220 1340 1850 660 Output Total 1970 2425 695 900 Balance -750 -1085 1155 -240 Weight 103.4 kg 100.3 kg 100.3 kg Laboratory Results (Last 24 hours) 02/08/22 05:30 Segmented Neutrophils 68 H Band Neutrophils 1 Lymphocytes (Manual) 21 L Monocytes (Manual) 6 Eosinophils (Manual) 1 Atypical Lymphocytes 3 Toxic Granulation 2+ Platelet Estimate NORMAL RBC Morphology ABNORMAL Poikilocytosis 1+ Anisocytosis 2+ Schistocytes 1+ Orders (Last 24 hours) Category Date Time Status BNP [NT PRO BNP] Routine Lab 02/09/22 08:25 Received CBC W DIFF Routine Lab 02/09/22 08:25 Received CMP Routine Lab 02/09/22 08:25 Received Patient Care Notes (Last 24 hours) 02/08/22 16:44 Nursing Note by Viktoria Scott Received call from Kaley at [facility] asking when patient would be discharged. Let her know patient would not be DC'd today, possible tomorrow or Thursday. Initialized on 02/08/22 16:44 - END OF NOTE Code(s): I50.9 - HEART FAILURE, UNSPECIFIED (2) Right upper lobe pneumonia Current Visit: Yes Status: Acute Qualifiers: Pneumonia type: due to unspecified organism Qualified Code(s): J18.9 - Pneumonia, unspecified organism Code(s): J18.9 - PNEUMONIA, UNSPECIFIED ORGANISM
[2022-02-09 08:53] LABS: ALBUMIN 3.6 g/dL (3.5-5.0); ANION GAP 12.8 MEQ/L (5-15); BILIRUBIN,TOTAL 0.9 mg/dL (0.2-1.3); Calcium 8.8 mg/dL (8.4-10.2); Creatinine 1 1.39 mg/dL (0.66-1.25); EST GLOMERULAR FILTRATION RATE 51.7 ML/MIN; Potassium 4.2 mmol/L (3.5-5.1); Total Protein 6.1 g/dL (6.3-8.2)
[2022-02-09 09:17] LABS: Hematocrit 38.9 % (42-50); Hemoglobin 11.8 gm/dl (12.5-18.0); Mean Cell Volume 92.4 fl (78-100); Mean Corpuscular Hgb Concent. 30.3 g/dl (32-36); Mean Platelet Volume 11.2 fl (7.5-11.0); Platelet Count 355 K/mm3 (150-450); Red Blood Count 4.21 M/mm3 (4.1-5.6); Red Cell Distribution Width 20.7 % (11.5-14.0); White Blood Count 12.3 K/mm3 (4.0-10.5)
[2022-02-09] MEDS: Lexapro 10 MG PO SCH (09:39)
[2022-02-09] MEDS: ROCEPHIN 1 Gm-D5w 50 ml Bag** 1 G/50 ML IVPB IV SCH (09:39)
[2022-02-09] MEDS: ULTRAM 50 MG PO PRN ×2 (09:39→21:07)
[2022-02-09] MEDS: LASIX 20 MG PO SCH (09:39)
[2022-02-09] MEDS: Protonix 40MG Tablet PO SCH (09:39)
[2022-02-09] MEDS: ZYLOPRIM 100 MG PO SCH (09:40)
[2022-02-09] MEDS: PATIENT OWN MEDICATION PO SCH ×2 (09:40→21:07)
[2022-02-09] MEDS: Klor Con 10 MEQ PO SCH (09:40)
[2022-02-09 11:43] LABS: ANISOCYTOSIS 2+; BAND 7 % (0.0-2.0); Basophil 2 % (0.0-1.0); Lymphocytes 23 % (24-44); Monocyte 2 % (0.0-12.0); Neutrophils 66 % (36.-66.); Nucleated Red Blood Cell 1 %; Platelet Estimate NORMAL (NORMAL); Poikilocytosis 2+; Schistocytes 1+; Total Cells Counted 100; Toxic Granulation 2+
[2022-02-09] MEDS: Zofran 4 MG/2 ML VIAL IV PRN (21:07)
[2022-02-09] MEDS: DESYREL 50 MG PO SCH (21:07)
[2022-02-10 07:46] VITALS: BP 134/72
[2022-02-10] MEDS: VENTOLIN COMMON CANISTER IH SCH (08:01)
--- NOTE | 2022-02-10 08:46 | PCM.DS ---
Discharge Summary Date of Admission: 02/05/22 16:26 Admitting Physician: DALIA NICHOLAS Primary Care Provider: DALIA NICHOLAS Allergies Allergies No Known Drug Allergies Allergy (Verified 02/05/22 12:57) Hospital Summary - Hospital Course Hospital Course: patient recently admitted to [facility] for pneumonia, had renal dysfunction so lasix was discontinued, he arrived with edema and shortness of breath. required diuresis for chf exacerbation. he is now feeling back to baseline, tolerating po and will resume po lasix at home, lives in assisted living. - Vitals & Intake/Output Vital Signs: Vital Signs Temperature 98.0 F 02/10/22 07:45 Pulse Rate 103 H 02/10/22 07:45 Respiratory Rate 16 02/10/22 07:45 Blood Pressure 134/72 02/10/22 07:45 O2 Sat by Pulse Oximetry 94 L 02/10/22 07:45 Intake & Output: Intake & Output 02/07/22 02/08/22 02/09/22 02/10/22 11:59 11:59 11:59 11:59 Intake Total 1340 1850 1080 660 Output Total 2425 695 900 675 Balance -1085 1155 180 -15 Weight 100.3 kg 100.3 kg 102.2 kg - Lab Result Diagrams: 02/09/22 08:25 02/09/22 08:25 Lab Results-Last 24 Hrs: Lab Results-Last 24 Hours 02/09/22 02/09/22 02/09/22 Range/Units 08:25 08:25 08:25 WBC 12.3 H (4.0-10.5) K/mm3 RBC 4.21 (4.1-5.6) M/mm3 Hgb 11.8 L (12.5-18.0) gm/dl Hct 38.9 L (42-50) % MCV 92.4 (78-100) fl MCH 28.0 (26-32) pg MCHC 30.3 L (32-36) g/dl RDW 20.7 H (11.5-14.0) % Plt Count 355 (150-450) K/mm3 MPV 11.2 H (7.5-11.0) fl Segmented Neutrophils 66 (36.-66.) % Band Neutrophils 7 H (0.0-2.0) % Lymphocytes (Manual) 23 L (24-44) % Monocytes (Manual) 2 (0.0-12.0) % Basophils (Manual) 2 H (0.0-1.0) % Nucleated RBCs 1 % Toxic Granulation 2+ Platelet Estimate NORMAL (NORMAL) RBC Morphology ABNORMAL Poikilocytosis 2+ Anisocytosis 2+ Schistocytes 1+ Sodium 138 (137-145) mmol/L Potassium 4.2 (3.5-5.1) mmol/L Chloride 100 (98-107) mmol/L Carbon Dioxide 29 (22-30) mmol/L Anion Gap 12.8 (5-15) MEQ/L BUN 18 (9-20) mg/dL Creatinine 1.39 H (0.66-1.25) mg/dL Estimated GFR 51.7 ML/MIN Glucose 114 H (74-106) mg/dL Calcium 8.8 (8.4-10.2) mg/dL Total Bilirubin 0.90 (0.2-1.3) mg/dL AST 34 (17-59) U/L ALT 27 (0-50) U/L Alkaline Phosphatase 88 (38-126) U/L NT-Pro-B Natriuret Pep 7910 H (0-1800) pg/mL Serum Total Protein 6.1 L (6.3-8.2) g/dL Albumin 3.6 (3.5-5.0) g/dL Micro Results-Entire Visit: Microbiology 02/05/22 11:10 Blood Culture Gram Stain - Final Blood Not Reportable Blood Culture - Final NO GROWTH 02/05/22 Unknown Blood Culture Gram Stain - Final Blood Not Reportable Blood Culture - Final NO GROWTH - Procedures and Test Procedures and Tests throughout Hospitalization: Therapy Orders & Screens 02/05/22 12:35 Oxygen Nasal Cannula 2 lpm Comment: 02/05/22 13:05 Respiratory Therapy Assessment DAILY Comment: Diagnosis: CHF exacerbation 02/05/22 13:09 RT Screen per Nursing Assess ONCE Comment: Protocol Order Physician Instructions: Greater than 3 points order RT Admission Screen Reason For Exam: Triggered on Admission Diagnosis: CHF exacerbation Diagnosis: CHF exacerbation Pneumonia: No Home O2: No Asthma: No CHF: Yes Home CPAP/BIPAP: No Home Nebs/MDI: Yes Total Points: 8 02/06/22 11:40 Flutter Therapy UD Comment: Diagnosis: CHF EXAC, PNEUMONIA 02/07/22 10:22 Qualify for Home Oxygen ROUTINE Comment: Diagnosis: CHF EXAC, PNEUMONIA Discharge Exam General Appearance: no apparent distress, alert Respiratory Exam: normal breath sounds Cardiovascular Exam: regular rate/rhythm, normal heart sounds Gastrointestinal/Abdomen Exam: soft, No tenderness, No mass Extremity Exam: normal inspection, normal range of motion Skin Exam: normal color, warm, dry Final Diagnosis/Problem List - Final Discharge Diagnosis/Problem (1) CHF exacerbation Current Visit: Yes Status: Acute Assessment & Plan: home with resumption of po lasix Code(s): I50.9 - HEART FAILURE, UNSPECIFIED (2) Right upper lobe pneumonia Current Visit: Yes Status: Acute Assessment & Plan: clinically improved, has had adequate antibiotic therapy here and with recent admission at [facility]. no further treatment required Code(s): J18.9 - PNEUMONIA, UNSPECIFIED ORGANISM - Discharge Disposition: Home, Self-Care Condition: Stable Prescriptions: New Potassium Chloride [Klor-Con M10] 10 meq PO DAILY #30 tab Continue Escitalopram Oxalate 10 mg [Lexapro 10 MG] 10 mg PO DAILY Allopurinol 100 mg [Zyloprim 100 mg] 100 mg PO DAILY Vit C/E/Zn/Coppr/Lutein/Zeaxan [Preservision Areds 2 Softgel] 1 cap PO BID Trazodone HCl 50 mg PO HS Tramadol HCl 50 mg [Ultram 50 mg] 50 mg PO Q6HPRN PRN PRN Reason: Pain Ruxolitinib Phosphate [Jakafi] 10 mg PO BID Ropinirole HCl 0.5 mg PO DAILY PRN PRN PRN Reason: RESTLESS LEG PANTOPRAZOLE 40 mg Tablet [Protonix 40MG Tablet] 40 mg PO DAILY Lovastatin [Altoprev] 20 mg PO HS Ferrous Sulfate [Andi-Time] 325 mg PO DAILY Albuterol Sulfate [Albuterol Sulfate Hfa] 90 mcg IH Q4H PRN PRN PRN Reason: Shortness Of Breath Valsartan 40 mg PO DAILY Furosemide 20 mg [Lasix 20 mg] 20 mg PO DAILY Multivitamin [Multi-Vitamin Daily] 1 each PO DAILY Outpatient Orders: BMP Time Frame: 1 Week, Facility: [facility], Location: LABORATORY Additional Instructions: have lab done in 1 week at [facility], have done the day prior to f/u a ppt with me in the office PATIENT HAS [facility]. PHONE NUMBER [phone] Follow up with: DALIA NICHOLAS MD [Primary Care Provider] - 1 Week
[2022-02-10 08:48] VITALS: PULSE 95; O2SAT 92
[2022-02-10] MEDS: Protonix 40MG Tablet PO SCH (09:00)
[2022-02-10] MEDS: Lexapro 10 MG PO SCH (09:00)
[2022-02-10] MEDS: LASIX 20 MG PO SCH (09:01)
[2022-02-10] MEDS: ZYLOPRIM 100 MG PO SCH (09:01)
[2022-02-10] MEDS: PATIENT OWN MEDICATION PO SCH (09:01)
[2022-02-10] MEDS: ROCEPHIN 1 Gm-D5w 50 ml Bag** 1 G/50 ML IVPB IV SCH (09:01)
[2022-02-10] MEDS: Klor Con 10 MEQ PO SCH (09:01)
[2022-02-10] MEDS: ULTRAM 50 MG PO PRN (09:08)
== END 2022-02-10 10:51 | disposition home health service (06) | DRG 291 ==
LOC: ED 09:33 → MED SURG 12:28 → OBSVTOIN 16:26
PROVIDERS: ADMIT Family Medicine; ATTEND Family Medicine
DX: I11.0 Hypertensive heart disease with heart failure (principal); J18.9 Pneumonia, unspecified organism; I50.9 Heart failure, unspecified; M79.89 Other specified soft tissue disorders; E78.00 Pure hypercholesterolemia, unspecified; N28.9 Disorder of kidney and ureter, unspecified; Z79.899 Other long term (current) drug therapy; Z85.46 Personal history of malignant neoplasm of prostate
CPT/HCPCS: 36000; 36415; 71045; 80048; 80053; 81001; 83605; 83735; 83880; 84484; 85025; 87040; 93005; 93041; 93268; 94640; 94667; 94668; 94760; 94762; 96374; 99285; J0456; J0696; J1650; J1940; J2405; A9270-GY

== ENCOUNTER 2022-02-16 21:29 | Inpatient (IN) | payer MEDICARE ==
[2022-02-16] MEDS ORDERED: DUONEB 0.5-3 MG/3 ml Neb IH ONE ×2 (21:48→21:56)
[2022-02-16] MEDS ORDERED: solu-MEDROL 125 MG, Sterile H2O 10 ml 2 ML IV ONE ×2 (21:48)
[2022-02-16] MEDS ORDERED: Zofran 4 MG/2 ML VIAL IV ONE (21:48)
[2022-02-16] MEDS ORDERED: solu-MEDROL ONE (22:05)
[2022-02-16] MEDS ORDERED: Sterile H2O 10 ml IJ ONE (22:05)
--- NOTE | 2022-02-16 22:06 | ERPHSYRPT ---
- History of Present Illness Time Seen by Provider: 02/16/22 22:00 Source: patient Exam Limitations: no limitations Patient Subjective Stated Complaint: pt states he has not been feeling well for the last few days. states he is nauseated at night and has dry heaves and has been short of breath some tonight. Triage Nursing Assessment: pt alert and oriented, answers questions approp. pt arrive per ambulance and transfers to [facility] with assist of 3. skin warm and dry. bruising to rt abd, pt states from blood thinners during previous admissio n. 2+ pitting edema to bilat lower ext. o2 on at 4l per nc. respirations nonlabored. Physician History: 86 years old male presented in the ER via EMS with chief complaint of increasing shortness of breath since this evening. Patient reports shortness of breath with activity and even resting and minimal productive cough. No fever or chills reported. Normally patient use 2 L oxygen but getting hypoxic with needing 4 L to maintain around 94%. Also reports nausea and dry heaving without any abdominal pain or vomiting. No fever or chills reported. Timing/Duration: today, constant, gradual onset, worse Activities at Onset: rest Severity of Dyspnea-Max: moderate Severity of Dyspnea-Current: moderate Possible Cause: unknown cause Associated Symptoms: cough, chest pain/discomfort, edema, wheezing, productive cough, tightness Allergies/Adverse Reactions: No Known Drug Allergies Allergy (Verified 02/16/22 22:00) Home Medications: Albuterol Sulfate [Albuterol Sulfate Hfa] 90 mcg IH Q4H PRN PRN 02/05/22 [History] Allopurinol 100 mg [Zyloprim 100 mg] 100 mg PO DAILY 02/05/22 [History] Escitalopram Oxalate 10 mg [Lexapro 10 MG] 10 mg PO DAILY 02/05/22 [History] Ferrous Sulfate [Andi-Time] 325 mg PO DAILY 02/05/22 [History] Furosemide 20 mg [Lasix 20 mg] 20 mg PO DAILY 02/05/22 [History] Lovastatin [Altoprev] 20 mg PO HS 02/05/22 [History] Multivitamin [Multi-Vitamin Daily] 1 each PO DAILY 02/05/22 [History] PANTOPRAZOLE 40 mg Tablet [Protonix 40MG Tablet] 40 mg PO DAILY 02/05/22 [History] Ropinirole HCl 0.5 mg PO DAILY PRN PRN 02/05/22 [History] Ruxolitinib Phosphate [Jakafi] 10 mg PO BID 02/05/22 [History] Tramadol HCl 50 mg [Ultram 50 mg] 50 mg PO Q6HPRN PRN 02/05/22 [History] Trazodone HCl 50 mg PO HS 02/05/22 [History] Valsartan 40 mg PO DAILY 02/05/22 [History] Vit C/E/Zn/Coppr/Lutein/Zeaxan [Preservision Areds 2 Softgel] 1 cap PO BID 02/05/22 [History] Hx Tetanus, Diphtheria Vaccination/Date Given: Yes Hx Influenza Vaccination/Date Given: Yes Hx Pneumococcal Vaccination/Date Given: Yes Immunizations Up to Date: Yes Travel Risk - International Travel Have you traveled outside of the country in past 3 weeks: No - Coronavirus Screening Are you exhibiting any of the following symptoms?: No Close contact with a COVID-19 positive Pt in past 14-21 Days: No - Vaccine Status Have you recieved a Covid-19 vaccination: Yes [employer]: Moderna - Vaccination Dates Date of 2cond Vaccination (if applicable): 01/18/21 - Review of Systems Constitutional: No Symptoms Eyes: No Symptoms Ears, Nose, & Throat: No Symptoms Respiratory: Cough, Dyspnea, Dyspnea on Exertion (LUKE), Wheezing Cardiac: Edema Abdominal/Gastrointestinal: Nausea Genitourinary Symptoms: No Symptoms Musculoskeletal: No Symptoms Skin: No Symptoms Neurological: No Symptoms Psychological: No Symptoms Endocrine: No Symptoms Immunological/Allergic: No Symptoms - Past Medical History Pertinent Past Medical History: Yes Neurological History: No Pertinent History ENT History: Cataracts Cardiac History: High Cholesterol, Hypertension, Other Respiratory History: Pneumonia Endocrine Medical History: No Pertinent History Musculoskeletal History: Arthritis GI Medical History: GERD, Ulcer History: No Pertinent History Psycho-Social History: Depression Male Reproductive Disorders: Prostate Cancer Other Medical History: Leaking heart valve, COVID in November 2021, polycythemia, RLS - Past Surgical History Past Surgical History: Yes Neuro Surgical History: No Pertinent History Cardiac: No Pertinent History Respiratory: No Pertinent History Gastrointestinal: Cholecystectomy, Hernia Repair Genitourinary: No Pertinent History Musculoskeletal: No Pertinent History Male Surgical History: Prostate Surgery - Social History Smoking Status: Former smoker Exposure to second hand smoke: No Drug Use: none Patient Lives Alone: No (assisted living [facility]) - Nursing Vital Signs Nursing Vital Signs: Initial Vital Signs Temperature 97.6 F 02/16/22 21:40 Pulse Rate 101 H 02/16/22 21:40 Respiratory Rate 22 02/16/22 21:40 Blood Pressure 124/78 02/16/22 21:40 O2 Sat by Pulse Oximetry 96 02/16/22 21:40 Pain Scale Pain Intensity 0 - Physical Exam General Appearance: no apparent distress, alert Eye Exam: PERRL/EOMI, eyes nml inspection Ears, Nose, Throat Exam: hearing grossly normal, normal ENT inspection, normal pharynx Neck Exam: normal inspection, supple, full range of motion Respiratory Exam: diminished breath sounds, rhonchi, wheezing Cardiovascular/Chest Exam: normal heart sounds, regular rate/rhythm Abdominal/Gastrointestinal Exam: soft, normal bowel sounds, No tenderness Extremity Exam: non-tender, normal range of motion Neurologic Exam: alert, oriented x 3, cooperative, normal mood/affect Skin Exam: normal color SpO2 Interpretation: O2 applied SpO2: 96 O2 Delivery: Nasal Cannula - Course EKG Interpreted by Me: RATE (100), Sinus Rhythm, NORMAL AXIS, prolonged QT interval, Non-specific ST Changes Ordered Tests: Active Orders 24 hr Category Date Time Status Bedrest ROUTINE Activity 02/17/22 01:19 Active Up With Assistance ROUTINE Activity 02/17/22 01:19 Active Code Status Order ROUTINE Care 02/17/22 01:19 Active EKG-ER Only STAT Care 02/16/22 21:48 Completed Fall Protocol Q1H Care 02/17/22 01:19 Active IV Care Q6H Care 02/17/22 01:19 Active IV Insertion STAT Care 02/16/22 21:48 Completed Oxygen-ED Only Nasal Cannula 4 lpm Care 02/16/22 21:[address] in Observation ROUTINE Care 02/17/22 01:19 Active Luis Hairston, Apply ROUTINE Care 02/17/22 01:19 Completed Weight,Daily 0600 Care 02/17/22 01:19 Active Heart-Healthy Diet Diet 02/17/22 Breakfast Active CHEST 1 VIEW (PORTABLE) Stat Exams 02/16/22 21:48 Taken BLOOD CULTURE Stat Lab 02/16/22 22:15 Received BNP [NT PRO BNP] Stat Lab 02/16/22 22:00 Completed CBC W DIFF AM.LAB Lab 02/17/22 04:49 Completed CBC W DIFF Stat Lab 02/16/22 22:21 Completed CMP AM.LAB Lab 02/17/22 04:49 Completed CMP Stat Lab 02/16/22 22:21 Completed LIPASE Stat Lab 02/16/22 22:21 Completed Lactic Acid Stat Lab 02/16/22 22:14 Completed Manual Differential NC Stat Lab 02/16/22 22:21 Completed TROPONIN Q3H Lab 02/16/22 22:00 Completed TROPONIN Q3H Lab 02/17/22 01:06 Completed TROPONIN Q3H Lab 02/17/22 04:49 Completed TROPONIN Q3H Lab 02/17/22 07:00 Ordered TROPONIN Q3H Lab 02/17/22 10:00 Ordered Respiratory Therapy Assessment DAILY RT 02/16/22 22:02 Completed Medication Summary Generic Name Dose Route Start Last Admin Trade Name Freq PRN Reason Stop Dose Admin Acetaminophen 650 mg 02/17/22 01:19 Acetaminophen 325 Mg Tablet PO 03/19/22 01:18 Q4H PRN PRN PAIN AND/OR FEVER Albuterol/Ipratropium 3 ml 02/17/22 07:00 Ipratropium/Albuterol Sulfate 3 Ml Ampul.Neb IH 03/19/22 06:59 QIDRT [facility] Enoxaparin Sodium 40 mg 02/17/22 10:00 Enoxaparin Sodium 40 Mg/0.4 Ml Syringe SQ 03/19/22 09:59 DAILY MANNY Azithromycin 500 mg in 250 mls @ 250 mls/hr 02/17/22 10:00 Zithromax 500 Mg/ 250 Ml Nacl Premix IV 03/19/22 09:59 Q24H10 MANNY Ceftriaxone Sodium/Dextrose 1 g in 50 mls @ 100 mls/hr 02/17/22 10:00 Rocephin 1 Gm-D5w 50 Ml Bag IV 02/20/22 09:59 Q24H10 MANNY Ondansetron HCl 4 mg 02/17/22 01:19 Ondansetron Hcl 4 Mg/2 Ml Vial IV 03/19/22 01:18 Q6H PRN PRN NAUSEA/VOMITING Pantoprazole Sodium 40 mg 02/17/22 10:00 Pantoprazole 40 Mg Vial IV 03/19/22 09:59 Q24H10 MANNY Discontinued Medications Generic Name Dose Route Start Last Admin Trade Name [place] PRN Reason Stop Dose Admin Albuterol/Ipratropium 3 ml 02/16/22 21:48 02/16/22 21:59 Ipratropium/Albuterol Sulfate 3 Ml Ampul.Neb IH 02/16/22 21:49 3 ml STAT ONE Administration Albuterol/Ipratropium Confirm 02/16/22 21:56 Ipratropium/Albuterol Sulfate 3 Ml Ampul.Neb Administered 02/16/22 21:57 Dose 3 ml IH .STK-MED ONE Aspirin 324 mg 02/16/22 23:22 02/16/22 23:32 Aspirin 81 Mg Tab.Chew PO 02/16/22 23:23 324 mg STAT ONE Administration Aspirin Confirm 02/16/22 23:30 Aspirin 81 Mg Tab.Chew Administered 02/16/22 23:31 Dose 324 mg .ROUTE .STK-MED ONE Methylprednisolone Sodium 0 mg 02/16/22 21:48 02/16/22 22:07 Succinate 125 mg/ Sterile IV 02/16/22 21:49 125 mg Water 2 ml STAT ONE Administration Furosemide 40 mg 02/16/22 23:22 02/16/22 23:32 Furosemide 40 Mg/4 Ml Vial IV 02/16/22 23:23 40 mg STAT ONE Administration Furosemide Confirm 02/16/22 23:30 Furosemide 40 Mg/4 Ml Vial Administered 02/16/22 23:31 Dose 40 mg .ROUTE .STK-MED ONE Ceftriaxone Sodium/Dextrose 2 g in 50 mls @ 100 mls/hr 02/16/22 23:11 02/17/22 00:18 Rocephin 2 Gm-D5w 50ml Bag IV 02/16/22 23:40 Infused STAT STA Infusion Azithromycin 500 mg in 250 mls @ 250 mls/hr 02/16/22 23:11 02/17/22 00:04 Zithromax 500 Mg/ 250 Ml Nacl Premix IV 02/17/22 00:10 250 ml/hr STAT STA 250 mls/hr Administration Azithromycin Confirm 02/16/22 23:16 Zithromax 500 Mg/ 250 Ml Nacl Premix Administered 02/16/22 23:17 Dose 500 mg in 250 mls @ ud IV .STK-MED ONE Ceftriaxone Sodium/Dextrose Confirm 02/16/22 23:16 Rocephin 2 Gm-D5w 50ml Bag Administered 02/16/22 23:17 Dose 2 g in 50 mls @ ud IV .STK-MED ONE Methylprednisolone Sodium Succinate Confirm 02/16/22 22:05 Methylprednis Sod Succ 125 Mg/2 Ml Vial Administered 02/16/22 22:06 Dose 125 mg .ROUTE .STK-MED ONE Ondansetron HCl 4 mg 02/16/22 21:48 02/16/22 22:10 Ondansetron Hcl 4 Mg/2 Ml Vial IV 02/16/22 21:49 Not Given STAT ONE Sterile Water Confirm 02/16/22 22:05 Water For Injection,Sterile 10 Ml Vial Administered 02/16/22 22:06 Dose 10 ml IJ .STK-MED ONE Lab/Rad Data: Laboratory Result Diagrams 02/16/22 22:21 02/16/22 22:21 Laboratory Results 02/17/22 02/16/22 02/16/22 Range/Units 01:06 23:28 22:25 WBC (4.0-10.5) K/mm3 RBC (4.1-5.6) M/mm3 Hgb (12.5-18.0) gm/dl Hct (42-50) % MCV (78-100) fl MCH (26-32) pg MCHC (32-36) g/dl RDW (11.5-14.0) % Plt Count (150-450) K/mm3 MPV (7.5-11.0) fl Segmented Neutrophils (36.-66.) % Band Neutrophils (0.0-2.0) % Lymphocytes (Manual) (24-44) % Monocytes (Manual) (0.0-12.0) % Eosinophils (Manual) (0.00-3.0) % Basophils (Manual) (0.0-1.0) % Nucleated RBCs % Platelet Estimate (NORMAL) RBC Morphology Polychromasia Anisocytosis Ovalocytes Sodium (137-145) mmol/L Potassium (3.5-5.1) mmol/L Chloride (98-107) mmol/L Carbon Dioxide (22-30) mmol/L Anion Gap (5-15) MEQ/L BUN (9-20) mg/dL Creatinine (0.66-1.25) mg/dL Estimated GFR ML/MIN Glucose (74-106) mg/dL Lactic Acid (0.4-2.0) Calcium (8.4-10.2) mg/dL Total Bilirubin (0.2-1.3) mg/dL AST (17-59) U/L ALT (0-50) U/L Alkaline Phosphatase (38-126) U/L Troponin I 0.172 H* (0.000-0.034) ng/mL NT-Pro-B Natriuret Pep (0-1800) pg/mL Serum Total Protein (6.3-8.2) g/dL Albumin (3.5-5.0) g/dL Lipase (23-300) U/L Urinalys Dipstick Clnc MAIN LAB Urine Color YELLOW (YELLOW) Urine Appearance CLEAR (CLEAR) Urine pH 5.0 (5-6) Ur Specific [place] >=1.030 (1.005-1.025) POC Urine Protein Conf >=300 (Negative) Urine Ketones NEGATIVE (NEGATIVE) Urine Nitrite NEGATIVE (NEGATIVE) Urine Bilirubin NEGATIVE (NEGATIVE) Urine Urobilinogen 0.2 (0-1) mg/dL Urine Leukocytes NEGATIVE (NEGATIVE) Urine WBC (Auto) 3-5 (0-5) /HPF Urine RBC (Auto) NONE (0-2) /HPF U Hyaline Cast (Auto) 26-50 (0-2) /LPF U Epithel Cells (Auto) NONE (FEW) /HPF Urine Bacteria (Auto) NONE (NEGATIVE) /HPF Urine RBC NEGATIVE (0-5) David/ul Urine Mucus (Auto) SLIGHT (NEGATIVE) /HPF Ur Culture Indicated? NO Urine Glucose NEGATIVE (NEGATIVE) mg/dL Influenza Type A Ag NEGATIVE (NEGATIVE) Influenza Type B Ag NEGATIVE (NEGATIVE) RSV (PCR) NEGATIVE (Negative) SARS-CoV-2 (PCR) NEGATIVE (NEGATIVE) 02/16/22 02/16/22 02/16/22 Range/Units 22:21 22:21 22:14 WBC 15.9 H (4.0-10.5) K/mm3 RBC 4.03 L (4.1-5.6) M/mm3 Hgb 11.3 L (12.5-18.0) gm/dl Hct 37.1 L (42-50) % MCV 92.1 (78-100) fl MCH 28.0 (26-32) pg MCHC 30.5 L (32-36) g/dl RDW 21.2 H (11.5-14.0) % Plt Count 342 (150-450) K/mm3 MPV 10.3 (7.5-11.0) fl Segmented Neutrophils 72 H (36.-66.) % Band Neutrophils 5 H (0.0-2.0) % Lymphocytes (Manual) 15 L (24-44) % Monocytes (Manual) 5 (0.0-12.0) % Eosinophils (Manual) 1 (0.00-3.0) % Basophils (Manual) 2 H (0.0-1.0) % Nucleated RBCs 1 % Platelet Estimate NORMAL (NORMAL) RBC Morphology ABNORMAL Polychromasia 2+ Anisocytosis 3+ Ovalocytes 3+ Sodium 135 L (137-145) mmol/L Potassium 4.2 (3.5-5.1) mmol/L Chloride 99 (98-107) mmol/L Carbon Dioxide 25 (22-30) mmol/L Anion Gap 15.0 (5-15) MEQ/L BUN 23 H (9-20) mg/dL Creatinine 1.65 H (0.66-1.25) mg/dL Estimated GFR 42.5 ML/MIN Glucose 150 H (74-106) mg/dL Lactic Acid 1.5 (0.4-2.0) Calcium 9.0 (8.4-10.2) mg/dL Total Bilirubin 1.30 (0.2-1.3) mg/dL AST 40 (17-59) U/L ALT 28 (0-50) U/L Alkaline Phosphatase 95 (38-126) U/L Troponin I (0.000-0.034) ng/mL NT-Pro-B Natriuret Pep (0-1800) pg/mL Serum Total Protein 6.0 L (6.3-8.2) g/dL Albumin 3.7 (3.5-5.0) g/dL Lipase 87 (23-300) U/L Urinalys Dipstick Clnc Urine Color (YELLOW) Urine Appearance (CLEAR) Urine pH (5-6) Ur Specific [place] (1.005-1.025) POC Urine Protein Conf (Negative) Urine Ketones (NEGATIVE) Urine Nitrite (NEGATIVE) Urine Bilirubin (NEGATIVE) Urine Urobilinogen (0-1) mg/dL Urine Leukocytes (NEGATIVE) Urine WBC (Auto) (0-5) /HPF Urine RBC (Auto) (0-2) /HPF U Hyaline Cast (Auto) (0-2) /LPF U Epithel Cells (Auto) (FEW) /HPF Urine Bacteria (Auto) (NEGATIVE) /HPF Urine RBC (0-5) David/ul Urine Mucus (Auto) (NEGATIVE) /HPF Ur Culture Indicated? Urine Glucose (NEGATIVE) mg/dL Influenza Type A Ag (NEGATIVE) Influenza Type B Ag (NEGATIVE) RSV (PCR) (Negative) SARS-CoV-2 (PCR) (NEGATIVE) 02/16/22 02/16/22 Range/Units 22:00 22:00 WBC (4.0-10.5) K/mm3 RBC (4.1-5.6) M/mm3 Hgb (12.5-18.0) gm/dl Hct (42-50) % MCV (78-100) fl MCH (26-32) pg MCHC (32-36) g/dl RDW (11.5-14.0) % Plt Count (150-450) K/mm3 MPV (7.5-11.0) fl Segmented Neutrophils (36.-66.) % Band Neutrophils (0.0-2.0) % Lymphocytes (Manual) (24-44) % Monocytes (Manual) (0.0-12.0) % Eosinophils (Manual) (0.00-3.0) % Basophils (Manual) (0.0-1.0) % Nucleated RBCs % Platelet Estimate (NORMAL) RBC Morphology Polychromasia Anisocytosis Ovalocytes Sodium (137-145) mmol/L Potassium (3.5-5.1) mmol/L Chloride (98-107) mmol/L Carbon Dioxide (22-30) mmol/L Anion Gap (5-15) MEQ/L BUN (9-20) mg/dL Creatinine (0.66-1.25) mg/dL Estimated GFR ML/MIN Glucose (74-106) mg/dL Lactic Acid (0.4-2.0) Calcium (8.4-10.2) mg/dL Total Bilirubin (0.2-1.3) mg/dL AST (17-59) U/L ALT (0-50) U/L Alkaline Phosphatase (38-126) U/L Troponin I 0.173 H* (0.000-0.034) ng/mL NT-Pro-B Natriuret Pep 49379 H (0-1800) pg/mL Serum Total Protein (6.3-8.2) g/dL Albumin (3.5-5.0) g/dL Lipase (23-300) U/L Urinalys Dipstick Clnc Urine Color (YELLOW) Urine Appearance (CLEAR) Urine pH (5-6) Ur Specific [place] (1.005-1.025) POC Urine Protein Conf (Negative) Urine Ketones (NEGATIVE) Urine Nitrite (NEGATIVE) Urine Bilirubin (NEGATIVE) Urine Urobilinogen (0-1) mg/dL Urine Leukocytes (NEGATIVE) Urine WBC (Auto) (0-5) /HPF Urine RBC (Auto) (0-2) /HPF U Hyaline Cast (Auto) (0-2) /LPF U Epithel Cells (Auto) (FEW) /HPF Urine Bacteria (Auto) (NEGATIVE) /HPF Urine RBC (0-5) David/ul Urine Mucus (Auto) (NEGATIVE) /HPF Ur Culture Indicated? Urine Glucose (NEGATIVE) mg/dL Influenza Type A Ag (NEGATIVE) Influenza Type B Ag (NEGATIVE) RSV (PCR) (Negative) SARS-CoV-2 (PCR) (NEGATIVE) - Progress Progress: improved Air Movement: fair Progress Note: 02/16/22 23:27 86-year-old is evaluated for increasing shortness of breath. Patient has combination of CHF/pneumonia, given small dose of Lasix because of her low blood pressure and dose of antibiotics. Has no acute ST elevation in the EKG but troponin 0.17 which on previous admission few days ago was 0.26 and patient denies any chest pain. Given aspirin. Patient is DNR. Discussed with Dr. Silvestre and patient is being admitted. Blood Culture(s) Obtained: Yes Antibiotics given: Yes Discussed with : Micaela Will see patient in: hospital (observation) Counseled pt/family regarding: lab results, diagnosis, rad results - Departure Departure Disposition: Observation Clinical Impression: CHF exacerbation, Bilateral pneumonia Condition: Stable Critical Care Time: Yes Critical Care Time(excluding separately billable procedures): Critical 30-74 mins
[2022-02-16 22:27] LABS: Hematocrit 37.1 % (42-50); Hemoglobin 11.3 gm/dl (12.5-18.0); Mean Cell Volume 92.1 fl (78-100); Mean Corpuscular Hgb Concent. 30.5 g/dl (32-36); Mean Platelet Volume 10.3 fl (7.5-11.0); Platelet Count 342 K/mm3 (150-450); Red Blood Count 4.03 M/mm3 (4.1-5.6); Red Cell Distribution Width 21.2 % (11.5-14.0); White Blood Count 15.9 K/mm3 (4.0-10.5)
[2022-02-16 22:44] LABS: ALBUMIN 3.7 g/dL (3.5-5.0); BILIRUBIN,TOTAL 1.3 mg/dL (0.2-1.3); Creatinine 1 1.65 mg/dL (0.66-1.25); EST GLOMERULAR FILTRATION RATE 42.5 ML/MIN; Potassium 4.2 mmol/L (3.5-5.1)
[2022-02-16 22:44] LABS: Appearance CLEAR (CLEAR); Bilirubin NEGATIVE (NEGATIVE); Dipstick done @ ? MAIN LAB; Glucose NEGATIVE (NEGATIVE); Ketones NEGATIVE (NEGATIVE); Nitrite NEGATIVE (NEGATIVE); Protein,Urine Dip >=300 (Negative); RBC NEGATIVE Ery/ul (0-5); Specific Gravity >=1.030 (1.005-1.025); Urobilinogen 0.2 mg/dL (0-1)
[2022-02-16 22:50] LABS: Hyaline Casts 26-50 /LPF (0-2); Mucus SLIGHT /HPF (NEGATIVE); Urine Cultured Indicated? NO
[2022-02-16] MEDS ORDERED: Zithromax 500 MG/ 250 ML NaCl Premix 500 MG/250 ML IVPB IV STA (23:11)
[2022-02-16] MEDS ORDERED: ROCEPHIN 2 Gm-D5w 50ML BAG** 2 G/50 ML IVPB IV STA (23:11)
[2022-02-16] MEDS ORDERED: Zithromax 500 MG/ 250 ML NaCl Premix 500 MG/250 ML IVPB IV ONE (23:16)
[2022-02-16] MEDS ORDERED: ROCEPHIN 2 Gm-D5w 50ML BAG** 2 G/50 ML IVPB IV ONE (23:16)
[2022-02-16 23:18] LABS: BAND 5 % (0.0-2.0); Basophil 2 % (0.0-1.0); Eosinophil 1 % (0.00-3.0); Lymphocytes 15 % (24-44); Monocyte 5 % (0.0-12.0); Neutrophils 72 % (36.-66.); Nucleated Red Blood Cell 1 %; Platelet Estimate NORMAL (NORMAL); Polychromasia 2+; Total Cells Counted 100
[2022-02-16 23:19] LABS: ANISOCYTOSIS 3+
[2022-02-16] MEDS ORDERED: Lasix 40 MG/4 ML IV ONE (23:22)
[2022-02-16] MEDS ORDERED: BABY ASPIRIN 81 MG CHEW PO ONE (23:22)
[2022-02-16 23:23] LABS: Ovalocytes 3+
[2022-02-16] MEDS ORDERED: Lasix 40 MG/4 ML ONE (23:30)
[2022-02-16] MEDS ORDERED: BABY ASPIRIN 81 MG CHEW ONE (23:30)
[2022-02-17 00:15] LABS: INFLUENZA A NEGATIVE (NEGATIVE); INFLUENZA B NEGATIVE (NEGATIVE); RESPIRATORY SYNCTIAL VIRUS NEGATIVE (Negative); SARS-CoV-2 Xpert Express NEGATIVE (NEGATIVE)
[2022-02-17] MEDS ORDERED: Zofran 4 MG/2 ML VIAL IV PRN (01:19)
[2022-02-17] MEDS ORDERED: TYLENOL 325 MG PO PRN (01:19)
[2022-02-17 05:08] LABS: ALBUMIN 3.6 g/dL (3.5-5.0); ANION GAP 13.4 MEQ/L (5-15); BILIRUBIN,TOTAL 0.9 mg/dL (0.2-1.3); Calcium 8.6 mg/dL (8.4-10.2); Creatinine 1 1.61 mg/dL (0.66-1.25); EST GLOMERULAR FILTRATION RATE 43.7 ML/MIN; Potassium 4.2 mmol/L (3.5-5.1)
[2022-02-17 05:52] LABS: Absolute Neutrophil Ct (ANC) 12.82 (1.4-6.9); Basophil (Absolute #) 0.11 (0-0.4); Eosinophil % 0.2 % (0.00-5.0); Eosinophil (Absolute #) 0.03 (0-0.5); Hematocrit 35.2 % (42-50); Hemoglobin 10.7 gm/dl (12.5-18.0); Lymphocyte (Absolute #) 1.71 (1.0-4.6); Lymphocytes % 11.2 % (24.0-44.0); Mean Cell Volume 92.1 fl (78-100); Mean Corpuscular Hgb Concent. 30.4 g/dl (32-36); Mean Platelet Volume 11.1 fl (7.5-11.0); Monocyte (Absolute #) 0.62 (0.0-1.3); Monocytes % 4.1 % (0.0-12.0); Neutrophil % 83.8 % (36.0-66.0); Platelet Count 309 K/mm3 (150-450); Red Blood Count 3.82 M/mm3 (4.1-5.6); White Blood Count 15.3 K/mm3 (4.0-10.5)
[2022-02-17] MEDS: DUONEB 0.5-3 MG/3 ml Neb IH SCH ×4 (08:05→18:38)
--- NOTE | 2022-02-17 08:13 | PCM.HP ---
History of Present Illness - Chief Complaint Chief Complaint: pnuemonia History of Present Illness: is a 86 year old male recently admitted here after return admit from [facility] with pneumonia and volume overload/chf exacerbation. he was diuresed and improved on rocephin/zithromax last visit, he is increasingly short of breath, was discharged on lasix 20mg po daily, was increased to 40mg daily last week x 3 days due to report of increased swelling from assisted living. he is swollen in his feet, oxygen requirement increased from 2L to 4L, he denies chest pain, has some cough. - Review of Systems Constitutional: No Fever, No Chills Respiratory: Cough, Short Of Breath Cardiac: Edema, No Chest Pain Genitourinary Symptoms: No Dysuria Skin: No Rash All Other Systems: Reviewed and Negative Medications & Allergies Home Medications: Home Medication List Albuterol Sulfate [Albuterol Sulfate Hfa] 90 mcg IH Q4H PRN PRN 02/05/22 [History Confirmed 02/16/22] Allopurinol 100 mg [Zyloprim 100 mg] 100 mg PO DAILY 02/05/22 [History Confirmed 02/16/22] Escitalopram Oxalate 10 mg [Lexapro 10 MG] 10 mg PO DAILY 02/05/22 [History Confirmed 02/16/22] Ferrous Sulfate [Andi-Time] 325 mg PO DAILY 02/05/22 [History Confirmed 02/16/22] Furosemide 20 mg [Lasix 20 mg] 20 mg PO DAILY 02/05/22 [History Confirmed 02/16/22] Lovastatin [Altoprev] 20 mg PO HS 02/05/22 [History Confirmed 02/16/22] Multivitamin [Multi-Vitamin Daily] 1 each PO DAILY 02/05/22 [History Confirmed 02/16/22] PANTOPRAZOLE 40 mg Tablet [Protonix 40MG Tablet] 40 mg PO DAILY 02/05/22 [History Confirmed 02/16/22] Ropinirole HCl 0.5 mg PO DAILY PRN PRN 02/05/22 [History Confirmed 02/16/22] Ruxolitinib Phosphate [Jakafi] 10 mg PO BID 02/05/22 [History Confirmed 02/16/22] Tramadol HCl 50 mg [Ultram 50 mg] 50 mg PO Q6HPRN PRN 02/05/22 [History Confirmed 02/16/22] Trazodone HCl 50 mg PO HS 02/05/22 [History Confirmed 02/16/22] Valsartan 40 mg PO DAILY 02/05/22 [History Confirmed 02/16/22] Vit C/E/Zn/Coppr/Lutein/Zeaxan [Preservision Areds 2 Softgel] 1 cap PO BID 02/05/22 [History Confirmed 02/16/22] Potassium Chloride [Klor-Con M10] 10 meq PO DAILY #30 tab 02/10/22 [Rx Confirmed 02/16/22] Allergies/Adverse Reactions: Allergies Allergy/AdvReac Type Severity Reaction Status Date / Time No Known Drug Allergies Allergy Verified 02/16/22 22:00 - Past Medical History Past Medical History: Yes Neurological History: No Pertinent History ENT History: Cataracts Cardiac History: High Cholesterol, Hypertension, Other Respiratory History: Pneumonia Endocrine Medical History: No Pertinent History Musculoskelatal History: Arthritis GI Medical History: GERD, Ulcer History: No Pertinent History Pyscho-Social History: Depression Male Reproductive Disorders: Prostate Cancer Comment: Leaking heart valve, COVID in November 2021, polycythemia, RLS - Past Surgical History Past Surgical History: Yes Neuro Surgical History: No Pertinent History Cardiac History: No Pertinent History Respiratory Surgery: No Pertinent History GI Surgical History: Cholecystectomy, Hernia Repair Genitourinary Surgical Hx: No Pertinent History Musculskeletal Surgical Hx: No Pertinent History Male Surgical History: Prostate Surgery - Social History Smoking Status: Former smoker Exposure to second hand smoke: No Alcohol: Occasionally Drug Use: none - Physical Exam Vital Signs: Vital Signs - 24 hr Temp Pulse Resp BP Pulse Ox 02/17/22 06:21 96 02/17/22 04:00 97.1 F 84 16 128/84 97 02/17/22 02:15 91 H 25 H 93 L 02/17/22 01:22 96.2 F 98 H 20 113/66 100 02/17/22 00:55 97 H 18 124/73 96 02/17/22 00:02 99 H 18 120/93 97 02/16/22 23:05 100 H 18 126/92 97 02/16/22 21:59 101 H 20 97 02/16/22 21:40 97.6 F 101 H 22 124/78 96 General Appearance: no apparent distress Neurologic Exam: alert, oriented x 3 Respiratory Exam: crackles/rales Cardiovascular Exam: regular rate/rhythm, normal heart sounds, normal peripheral pulses Gastrointestinal/Abdomen Exam: soft, normal bowel sounds, No tenderness, No mass Extremity Exam: swelling Skin Exam: normal color, warm, dry, No rash Results - Labs Lab/Micro Results: Lab Results-Last 24 Hours 02/16/22 02/16/22 02/16/22 Range/Units 22:00 22:00 22:14 WBC (4.0-10.5) K/mm3 RBC (4.1-5.6) M/mm3 Hgb (12.5-18.0) gm/dl Hct (42-50) % MCV (78-100) fl MCH (26-32) pg MCHC (32-36) g/dl RDW (11.5-14.0) % Plt Count (150-450) K/mm3 MPV (7.5-11.0) fl Gran % (36.0-66.0) % Eos # (Auto) (0-0.5) Absolute Lymphs (auto) (1.0-4.6) Absolute Monos (auto) (0.0-1.3) Lymphocytes % (24.0-44.0) % Monocytes % (0.0-12.0) % Eosinophils % (0.00-5.0) % Basophils % (0.0-0.4) % Absolute Granulocytes (1.4-6.9) Segmented Neutrophils (36.-66.) % Band Neutrophils (0.0-2.0) % Lymphocytes (Manual) (24-44) % Monocytes (Manual) (0.0-12.0) % Eosinophils (Manual) (0.00-3.0) % Basophils (Manual) (0.0-1.0) % Basophils # (0-0.4) Nucleated RBCs % Platelet Estimate (NORMAL) RBC Morphology Polychromasia Anisocytosis Ovalocytes Sodium (137-145) mmol/L Potassium (3.5-5.1) mmol/L Chloride (98-107) mmol/L Carbon Dioxide (22-30) mmol/L Anion Gap (5-15) MEQ/L BUN (9-20) mg/dL Creatinine (0.66-1.25) mg/dL Estimated GFR ML/MIN Glucose (74-106) mg/dL Lactic Acid 1.5 (0.4-2.0) Calcium (8.4-10.2) mg/dL Total Bilirubin (0.2-1.3) mg/dL AST (17-59) U/L ALT (0-50) U/L Alkaline Phosphatase (38-126) U/L Troponin I 0.173 H* (0.000-0.034) ng/mL NT-Pro-B Natriuret Pep 78345 H (0-1800) pg/mL Serum Total Protein (6.3-8.2) g/dL Albumin (3.5-5.0) g/dL Lipase (23-300) U/L Urinalys Dipstick Clnc Urine Color (YELLOW) Urine Appearance (CLEAR) Urine pH (5-6) Ur Specific [place] (1.005-1.025) POC Urine Protein Conf (Negative) Urine Ketones (NEGATIVE) Urine Nitrite (NEGATIVE) Urine Bilirubin (NEGATIVE) Urine Urobilinogen (0-1) mg/dL Urine Leukocytes (NEGATIVE) Urine WBC (Auto) (0-5) /HPF Urine RBC (Auto) (0-2) /HPF U Hyaline Cast (Auto) (0-2) /LPF U Epithel Cells (Auto) (FEW) /HPF Urine Bacteria (Auto) (NEGATIVE) /HPF Urine RBC (0-5) David/ul Urine Mucus (Auto) (NEGATIVE) /HPF Ur Culture Indicated? Urine Glucose (NEGATIVE) mg/dL Influenza Type A Ag (NEGATIVE) Influenza Type B Ag (NEGATIVE) RSV (PCR) (Negative) SARS-CoV-2 (PCR) (NEGATIVE) 02/16/22 02/16/22 02/16/22 Range/Units 22:21 22:21 22:25 WBC 15.9 H (4.0-10.5) K/mm3 RBC 4.03 L (4.1-5.6) M/mm3 Hgb 11.3 L (12.5-18.0) gm/dl Hct 37.1 L (42-50) % MCV 92.1 (78-100) fl MCH 28.0 (26-32) pg MCHC 30.5 L (32-36) g/dl RDW 21.2 H (11.5-14.0) % Plt Count 342 (150-450) K/mm3 MPV 10.3 (7.5-11.0) fl Gran % (36.0-66.0) % Eos # (Auto) (0-0.5) Absolute Lymphs (auto) (1.0-4.6) Absolute Monos (auto) (0.0-1.3) Lymphocytes % (24.0-44.0) % Monocytes % (0.0-12.0) % Eosinophils % (0.00-5.0) % Basophils % (0.0-0.4) % Absolute Granulocytes (1.4-6.9) Segmented Neutrophils 72 H (36.-66.) % Band Neutrophils 5 H (0.0-2.0) % Lymphocytes (Manual) 15 L (24-44) % Monocytes (Manual) 5 (0.0-12.0) % Eosinophils (Manual) 1 (0.00-3.0) % Basophils (Manual) 2 H (0.0-1.0) % Basophils # (0-0.4) Nucleated RBCs 1 % Platelet Estimate NORMAL (NORMAL) RBC Morphology ABNORMAL Polychromasia 2+ Anisocytosis 3+ Ovalocytes 3+ Sodium 135 L (137-145) mmol/L Potassium 4.2 (3.5-5.1) mmol/L Chloride 99 (98-107) mmol/L Carbon Dioxide 25 (22-30) mmol/L Anion Gap 15.0 (5-15) MEQ/L BUN 23 H (9-20) mg/dL Creatinine 1.65 H (0.66-1.25) mg/dL Estimated GFR 42.5 ML/MIN Glucose 150 H (74-106) mg/dL Lactic Acid (0.4-2.0) Calcium 9.0 (8.4-10.2) mg/dL Total Bilirubin 1.30 (0.2-1.3) mg/dL AST 40 (17-59) U/L ALT 28 (0-50) U/L Alkaline Phosphatase 95 (38-126) U/L Troponin I (0.000-0.034) ng/mL NT-Pro-B Natriuret Pep (0-1800) pg/mL Serum Total Protein 6.0 L (6.3-8.2) g/dL Albumin 3.7 (3.5-5.0) g/dL Lipase 87 (23-300) U/L Urinalys Dipstick Clnc MAIN LAB Urine Color YELLOW (YELLOW) Urine Appearance CLEAR (CLEAR) Urine pH 5.0 (5-6) Ur Specific Gwinner >=1.030 (1.005-1.025) POC Urine Protein Conf >=300 (Negative) Urine Ketones NEGATIVE (NEGATIVE) Urine Nitrite NEGATIVE (NEGATIVE) Urine Bilirubin NEGATIVE (NEGATIVE) Urine Urobilinogen 0.2 (0-1) mg/dL Urine Leukocytes NEGATIVE (NEGATIVE) Urine WBC (Auto) 3-5 (0-5) /HPF Urine RBC (Auto) NONE (0-2) /HPF U Hyaline Cast (Auto) 26-50 (0-2) /LPF U Epithel Cells (Auto) NONE (FEW) /HPF Urine Bacteria (Auto) NONE (NEGATIVE) /HPF Urine RBC NEGATIVE (0-5) David/ul Urine Mucus (Auto) SLIGHT (NEGATIVE) /HPF Ur Culture Indicated? NO Urine Glucose NEGATIVE (NEGATIVE) mg/dL Influenza Type A Ag (NEGATIVE) Influenza Type B Ag (NEGATIVE) RSV (PCR) (Negative) SARS-CoV-2 (PCR) (NEGATIVE) 02/16/22 02/17/22 02/17/22 Range/Units 23:28 01:06 04:49 WBC (4.0-10.5) K/mm3 RBC (4.1-5.6) M/mm3 Hgb (12.5-18.0) gm/dl Hct (42-50) % MCV (78-100) fl MCH (26-32) pg MCHC (32-36) g/dl RDW (11.5-14.0) % Plt Count (150-450) K/mm3 MPV (7.5-11.0) fl Gran % (36.0-66.0) % Eos # (Auto) (0-0.5) Absolute Lymphs (auto) (1.0-4.6) Absolute Monos (auto) (0.0-1.3) Lymphocytes % (24.0-44.0) % Monocytes % (0.0-12.0) % Eosinophils % (0.00-5.0) % Basophils % (0.0-0.4) % Absolute Granulocytes (1.4-6.9) Segmented Neutrophils (36.-66.) % Band Neutrophils (0.0-2.0) % Lymphocytes (Manual) (24-44) % Monocytes (Manual) (0.0-12.0) % Eosinophils (Manual) (0.00-3.0) % Basophils (Manual) (0.0-1.0) % Basophils # (0-0.4) Nucleated RBCs % Platelet Estimate (NORMAL) RBC Morphology Polychromasia Anisocytosis Ovalocytes Sodium (137-145) mmol/L Potassium (3.5-5.1) mmol/L Chloride (98-107) mmol/L Carbon Dioxide (22-30) mmol/L Anion Gap (5-15) MEQ/L BUN (9-20) mg/dL Creatinine (0.66-1.25) mg/dL Estimated GFR ML/MIN Glucose (74-106) mg/dL Lactic Acid (0.4-2.0) Calcium (8.4-10.2) mg/dL Total Bilirubin (0.2-1.3) mg/dL AST (17-59) U/L ALT (0-50) U/L Alkaline Phosphatase (38-126) U/L Troponin I 0.172 H* 0.166 H* (0.000-0.034) ng/mL NT-Pro-B Natriuret Pep (0-1800) pg/mL Serum Total Protein (6.3-8.2) g/dL Albumin (3.5-5.0) g/dL Lipase (23-300) U/L Urinalys Dipstick Clnc Urine Color (YELLOW) Urine Appearance (CLEAR) Urine pH (5-6) Ur Specific G[place]inner (1.005-1.025) POC Urine Protein Conf (Negative) Urine Ketones (NEGATIVE) Urine Nitrite (NEGATIVE) Urine Bilirubin (NEGATIVE) Urine Urobilinogen (0-1) mg/dL Urine Leukocytes (NEGATIVE) Urine WBC (Auto) (0-5) /HPF Urine RBC (Auto) (0-2) /HPF U Hyaline Cast (Auto) (0-2) /LPF U Epithel Cells (Auto) (FEW) /HPF Urine Bacteria (Auto) (NEGATIVE) /HPF Urine RBC (0-5) David/ul Urine Mucus (Auto) (NEGATIVE) /HPF Ur Culture Indicated? Urine Glucose (NEGATIVE) mg/dL Influenza Type A Ag NEGATIVE (NEGATIVE) Influenza Type B Ag NEGATIVE (NEGATIVE) RSV (PCR) NEGATIVE (Negative) SARS-CoV-2 (PCR) NEGATIVE (NEGATIVE) 02/17/22 02/17/22 02/17/22 Range/Units 04:49 04:49 07:09 WBC 15.3 H (4.0-10.5) K/mm3 RBC 3.82 L (4.1-5.6) M/mm3 Hgb 10.7 L (12.5-18.0) gm/dl Hct 35.2 L (42-50) % MCV 92.1 (78-100) fl MCH 28.0 (26-32) pg MCHC 30.4 L (32-36) g/dl RDW 21.0 H (11.5-14.0) % Plt Count 309 (150-450) K/mm3 MPV 11.1 H (7.5-11.0) fl Gran % 83.8 H (36.0-66.0) % Eos # (Auto) 0.03 (0-0.5) Absolute Lymphs (auto) 1.71 (1.0-4.6) Absolute Monos (auto) 0.62 (0.0-1.3) Lymphocytes % 11.2 L (24.0-44.0) % Monocytes % 4.1 (0.0-12.0) % Eosinophils % 0.2 (0.00-5.0) % Basophils % 0.7 (0.0-0.4) % Absolute Granulocytes 12.82 H (1.4-6.9) Segmented Neutrophils (36.-66.) % Band Neutrophils (0.0-2.0) % Lymphocytes (Manual) (24-44) % Monocytes (Manual) (0.0-12.0) % Eosinophils (Manual) (0.00-3.0) % Basophils (Manual) (0.0-1.0) % Basophils # 0.11 (0-0.4) Nucleated RBCs % Platelet Estimate (NORMAL) RBC Morphology Polychromasia Anisocytosis Ovalocytes Sodium 136 L (137-145) mmol/L Potassium 4.2 (3.5-5.1) mmol/L Chloride 100 (98-107) mmol/L Carbon Dioxide 27 (22-30) mmol/L Anion Gap 13.4 (5-15) MEQ/L BUN 24 H (9-20) mg/dL Creatinine 1.61 H (0.66-1.25) mg/dL Estimated GFR 43.7 ML/MIN Glucose 164 H (74-106) mg/dL Lactic Acid (0.4-2.0) Calcium 8.6 (8.4-10.2) mg/dL Total Bilirubin 0.90 (0.2-1.3) mg/dL AST 36 (17-59) U/L ALT 27 (0-50) U/L Alkaline Phosphatase 84 (38-126) U/L Troponin I 0.163 H* (0.000-0.034) ng/mL NT-Pro-B Natriuret Pep (0-1800) pg/mL Serum Total Protein 6.0 L (6.3-8.2) g/dL Albumin 3.6 (3.5-5.0) g/dL Lipase (23-300) U/L Urinalys Dipstick Clnc Urine Color (YELLOW) Urine Appearance (CLEAR) Urine pH (5-6) Ur Specific [place] (1.005-1.025) POC Urine Protein Conf (Negative) Urine Ketones (NEGATIVE) Urine Nitrite (NEGATIVE) Urine Bilirubin (NEGATIVE) Urine Urobilinogen (0-1) mg/dL Urine Leukocytes (NEGATIVE) Urine WBC (Auto) (0-5) /HPF Urine RBC (Auto) (0-2) /HPF U Hyaline Cast (Auto) (0-2) /LPF U Epithel Cells (Auto) (FEW) /HPF Urine Bacteria (Auto) (NEGATIVE) /HPF Urine RBC (0-5) David/ul Urine Mucus (Auto) (NEGATIVE) /HPF Ur Culture Indicated? Urine Glucose (NEGATIVE) mg/dL Influenza Type A Ag (NEGATIVE) Influenza Type B Ag (NEGATIVE) RSV (PCR) (Negative) SARS-CoV-2 (PCR) (NEGATIVE) - Radiology Impressions Radiology Exams & Impressions: Radiology Procedures Category Date Time Status CHEST 1 VIEW (PORTABLE) Stat Exams 02/16/22 21:48 Taken ECHO W/2D AND DOPPLER [US] Routine Exams 02/17/22 Ordered - Other Procedures and Tests Respiratory Therapy 02/17/22 02:21 Oxygen NASAL CANNULA 2 lpm Respiratory Therapy Assessment DAILY Assessment/Plan (1) CHF exacerbation Current Visit: Yes Status: Acute Qualifiers: Assessment & Plan: ordered echo, will consult with cardiology. patient was on an arb and lasix. will add low dose beta miriam with carvedilol and hold valsartan due to bp on lower side, has loxenox for dvt prophylaxis. echo pending Code(s): I50.9 - HEART FAILURE, UNSPECIFIED (2) Elevated troponin Current Visit: Yes Status: Acute Code(s): R77.8 - OTHER SPECIFIED ABNORMALITIES OF PLASMA PROTEINS (3) Right upper lobe pneumonia Current Visit: No Status: Acute Qualifiers: Assessment & Plan: on rocephin and zithromax, I believe chf is primary culprit for symptoms Code(s): J18.9 - PNEUMONIA, UNSPECIFIED ORGANISM
[2022-02-17] MEDS ORDERED: NON-FORMULARY ITEM (Ropinirole Hcl [Ropinirole Hcl] 1 MG Tablet) PO PRN (08:58)
[2022-02-17] MEDS ORDERED: Ventolin Hfa MDI IH PRN (08:58)
--- NOTE | 2022-02-17 09:02 | XRAY ---
Indication: Short of breath. Comparison: February 05, 2022. Portable chest again demonstrates peripheral right upper lobe consolidation/air space disease minimally improved. Stable tiny right effusion. Remaining heart and left lung unremarkable.
[2022-02-17] MEDS ORDERED: VENTOLIN COMMON CANISTER IH PRN (09:04)
[2022-02-17] MEDS: Robitussin AC Syrup Unit Dose Cup PO PRN ×2 (09:07→20:08)
[2022-02-17] MEDS ORDERED: Requip 0.5 MG PO PRN (09:14)
[2022-02-17] MEDS ORDERED: MEDICATION INTERVENTION MC SCH (09:30)
[2022-02-17] MEDS: Lasix 40 MG/4 ML IV SCH ×2 (09:33→23:11)
[2022-02-17] MEDS: Klor Con 10 MEQ PO SCH ×2 (09:34→21:15)
[2022-02-17] MEDS: Protonix 40MG Tablet PO SCH (09:34)
[2022-02-17] MEDS: ZYLOPRIM 100 MG PO SCH (09:34)
[2022-02-17] MEDS: Lexapro 10 MG PO SCH (09:34)
[2022-02-17] MEDS: Coreg 3.125 MG PO SCH ×2 (09:34→21:14)
[2022-02-17] MEDS: FEOSOL 325 MG PO SCH (09:35)
[2022-02-17] MEDS: ENOXAPARIN SODIUM SQ SCH (09:43)
[2022-02-17] MEDS ORDERED: RUXOLITINIB PHOSPHATE 10 MG PO SCH (10:00)
[2022-02-17] MEDS ORDERED: PROTONIX 40 MG IV IV SCH (10:00)
[2022-02-17] MEDS: PATIENT OWN MEDICATION PO SCH ×2 (11:28→21:15)
[2022-02-17] MEDS: ULTRAM 50 MG PO PRN (20:08)
[2022-02-17] MEDS: DESYREL 50 MG PO SCH (21:15)
[2022-02-17] MEDS: Zocor 10MG PO SCH (21:16)
[2022-02-17] MEDS ORDERED: Zithromax 500 MG/ 250 ML NaCl Premix 500 MG/250 ML IVPB IV SCH (22:00)
[2022-02-17] MEDS ORDERED: LOVASTATIN 20 MG PO SCH (22:00)
[2022-02-17] MEDS ORDERED: ROCEPHIN 1 Gm-D5w 50 ml Bag** 1 G/50 ML IVPB IV SCH (22:00)
[2022-02-18] MEDS: Robitussin AC Syrup Unit Dose Cup PO PRN ×3 (00:41→16:22)
[2022-02-18] MEDS ORDERED: BENADRYL 25 MG CAPSULE PO PRN (01:15)
[2022-02-18 05:22] LABS: Hematocrit 37.1 % (42-50); Hemoglobin 11.4 gm/dl (12.5-18.0); Mean Cell Volume 92.1 fl (78-100); Mean Corpuscular Hemoglobin 28.3 pg (26-32); Mean Corpuscular Hgb Concent. 30.7 g/dl (32-36); Mean Platelet Volume 11.7 fl (7.5-11.0); Platelet Count 372 K/mm3 (150-450); Red Blood Count 4.03 M/mm3 (4.1-5.6); Red Cell Distribution Width 20.9 % (11.5-14.0); White Blood Count 17.5 K/mm3 (4.0-10.5)
[2022-02-18 05:43] LABS: ANION GAP 16.9 MEQ/L (5-15); Calcium 8.6 mg/dL (8.4-10.2); Creatinine 1 1.92 mg/dL (0.66-1.25); EST GLOMERULAR FILTRATION RATE 35.6 ML/MIN; MAGNESIUM 2.5 mg/dL (1.6-2.3)
[2022-02-18] MEDS: DUONEB 0.5-3 MG/3 ml Neb IH SCH ×4 (07:25→19:00)
--- NOTE | 2022-02-18 08:40 | PCM.NOTE ---
Date and Time: 02/18/22 0839 Subjective Assessment: patient was seen by cardiology, ef reduced to 40-45% and significant on echo, recommend diuresing and treating pneumonia then consideration for TAVR Objective Exam General Appearance: no apparent distress Neurologic Exam: alert, oriented x 3 Respiratory Exam: crackles/rales Cardiovascular Exam: regular rate/rhythm, normal heart sounds Gastrointestinal/Abdomen Exam: soft, No tenderness, No mass Extremity Exam: swelling OBJECTIVE DATA Vital Signs: Vital Signs - 24 hr Temp Pulse Resp BP Pulse Ox 02/18/22 07:26 87 18 98 02/18/22 07:24 97.9 F 83 16 129/77 95 02/18/22 04:00 97.4 F 88 18 121/75 98 02/17/22 23:28 99.0 F 95 H 18 86/60 100 02/17/22 19:42 97.1 F 89 18 111/69 99 02/17/22 18:40 92 H 20 98 02/17/22 16:00 97.1 F 91 H 19 98 02/17/22 14:46 88 18 97 02/17/22 12:00 97.1 F 94 H 19 105/73 97 Pain Assessment - Last Documented Pain Intensity 0 Intake and Output: Intake & Output 02/15/22 02/16/22 02/17/22 02/18/22 11:59 11:59 11:59 11:59 Intake Total 240 840 Output Total 350 1075 Balance -110 -235 Weight 104.6 kg 104.6 kg Lab Results: Lab Results-Last 24 Hours 02/17/22 02/17/22 02/18/22 Range/Units 10:50 22:44 04:15 WBC 17.5 H (4.0-10.5) K/mm3 RBC 4.03 L (4.1-5.6) M/mm3 Hgb 11.4 L (12.5-18.0) gm/dl Hct 37.1 L (42-50) % MCV 92.1 (78-100) fl MCH 28.3 (26-32) pg MCHC 30.7 L (32-36) g/dl RDW 20.9 H (11.5-14.0) % Plt Count 372 (150-450) K/mm3 MPV 11.7 H (7.5-11.0) fl Sodium (137-145) mmol/L Potassium (3.5-5.1) mmol/L Chloride (98-107) mmol/L Carbon Dioxide (22-30) mmol/L Anion Gap (5-15) MEQ/L BUN (9-20) mg/dL Creatinine (0.66-1.25) mg/dL Estimated GFR ML/MIN Glucose (74-106) mg/dL POC Glucometer 156 H (74 to 106) mg/dL Calcium (8.4-10.2) mg/dL Magnesium (1.6-2.3) mg/dL Troponin I 0.162 H* (0.000-0.034) ng/mL NT-Pro-B Natriuret Pep (0-1800) pg/mL 02/18/22 Range/Units 04:15 WBC (4.0-10.5) K/mm3 RBC (4.1-5.6) M/mm3 Hgb (12.5-18.0) gm/dl Hct (42-50) % MCV (78-100) fl MCH (26-32) pg MCHC (32-36) g/dl RDW (11.5-14.0) % Plt Count (150-450) K/mm3 MPV (7.5-11.0) fl Sodium 135 L (137-145) mmol/L Potassium 5.0 (3.5-5.1) mmol/L Chloride 98 (98-107) mmol/L Carbon Dioxide 24 (22-30) mmol/L Anion Gap 16.9 H (5-15) MEQ/L BUN 37 H (9-20) mg/dL Creatinine 1.92 H (0.66-1.25) mg/dL Estimated GFR 35.6 ML/MIN Glucose 110 H (74-106) mg/dL POC Glucometer (74 to 106) mg/dL Calcium 8.6 (8.4-10.2) mg/dL Magnesium 2.5 H (1.6-2.3) mg/dL Troponin I (0.000-0.034) ng/mL NT-Pro-B Natriuret Pep 36485 H (0-1800) pg/mL Radiology Exams: Radiology Procedures Category Date Time Status CHEST 1 VIEW (PORTABLE) Stat Exams 02/16/22 21:48 Completed ECHO W/2D AND DOPPLER [US] Routine Exams 02/17/22 11:01 Taken Multi-Disciplinary Progress Notes: Multi-Disciplinary Progress Notes 02/17/22 10:57 Case Management Note by Ashley Cortez PATIENT HAS [facility]. THEY WERE UPDATED THAT PATIENT IS HERE OBS. THEY WILL NEED NOTIFIED AT TIME OF DC AT [phone]. THEY WILL NEED FAXED THE DC INSTRUCTIONS, DC MED LIST AND DC SUMMARY ( IF AVAILABLE) TO [phone] Initialized on 02/17/22 10:57 - END OF NOTE Assessment/Plan (1) CHF exacerbation Current Visit: Yes Status: Acute Qualifiers: Assessment & Plan: continue IV lasix, will monitor gfr as there is some reduction currently Code(s): I50.9 - HEART FAILURE, UNSPECIFIED (2) Elevated troponin Current Visit: Yes Status: Acute Code(s): R77.8 - OTHER SPECIFIED ABNORMALITIES OF PLASMA PROTEINS (3) Right upper lobe pneumonia Current Visit: No Status: Acute Qualifiers: Assessment & Plan: change to po levaquin, had reaction to zithromax Code(s): J18.9 - PNEUMONIA, UNSPECIFIED ORGANISM
[2022-02-18] MEDS: ZYLOPRIM 100 MG PO SCH (09:10)
[2022-02-18] MEDS: Klor Con 10 MEQ PO SCH ×2 (09:10→21:50)
[2022-02-18] MEDS: Levofloxacin 250MG Tablet PO SCH (09:10)
[2022-02-18] MEDS: ENOXAPARIN SODIUM SQ SCH (09:10)
[2022-02-18] MEDS: Lexapro 10 MG PO SCH (09:11)
[2022-02-18] MEDS: FEOSOL 325 MG PO SCH (09:11)
[2022-02-18] MEDS: PATIENT OWN MEDICATION PO SCH ×2 (09:11→21:50)
[2022-02-18] MEDS: Lasix 40 MG/4 ML IV SCH ×2 (09:11→17:59)
[2022-02-18] MEDS: Protonix 40MG Tablet PO SCH (09:11)
[2022-02-18] MEDS: ULTRAM 50 MG PO PRN (09:15)
[2022-02-18 12:29] LABS: BAND 9 % (0.0-2.0); Lymphocytes 17 % (24-44); Metamyelocyte 3 %; Monocyte 4 % (0.0-12.0); Myelocyte 2 %; Total Cells Counted 100
[2022-02-18 12:30] LABS: ANISOCYTOSIS 3+; Nucleated Red Blood Cell 8 %; Ovalocytes 3+; Polychromasia 1+; Schistocytes RARE; Tear Drop Cells 1+
[2022-02-18 12:36] LABS: Platelet Estimate NORMAL (NORMAL)
[2022-02-18 12:53] LABS: Neutrophils 64 % (36.-66.); Promyelocyte 1 %
[2022-02-18] MEDS: Zocor 10MG PO SCH (21:50)
[2022-02-18] MEDS: DESYREL 50 MG PO SCH (21:50)
[2022-02-19 05:44] LABS: Hematocrit 34.8 % (42-50); Hemoglobin 10.7 gm/dl (12.5-18.0); Mean Cell Volume 91.3 fl (78-100); Mean Corpuscular Hemoglobin 28.1 pg (26-32); Mean Corpuscular Hgb Concent. 30.7 g/dl (32-36); Mean Platelet Volume 11.2 fl (7.5-11.0); Platelet Count 407 K/mm3 (150-450); Red Blood Count 3.81 M/mm3 (4.1-5.6); Red Cell Distribution Width 21.1 % (11.5-14.0); White Blood Count 14.4 K/mm3 (4.0-10.5)
[2022-02-19] MEDS: Lasix 40 MG/4 ML IV SCH ×2 (05:54→17:10)
[2022-02-19 06:30] LABS: ANISOCYTOSIS 1+; BAND 3 % (0.0-2.0); Eosinophil 1 % (0.00-3.0); Lymphocytes 26 % (24-44); Monocyte 6 % (0.0-12.0); Neutrophils 64 % (36.-66.); Nucleated Red Blood Cell 2 %; Ovalocytes 1+; Poikilocytosis 1+; Polychromasia 1+; Total Cells Counted 100
[2022-02-19 07:22] LABS: ANION GAP 14.1 MEQ/L (5-15); Calcium 8.3 mg/dL (8.4-10.2); Creatinine 1 1.89 mg/dL (0.66-1.25); EST GLOMERULAR FILTRATION RATE 36.3 ML/MIN; Potassium 4.1 mmol/L (3.5-5.1)
[2022-02-19] MEDS: DUONEB 0.5-3 MG/3 ml Neb IH SCH ×4 (07:33→19:28)
[2022-02-19 08:07] LABS: Morphology Comment GIANT PLATELETS SEEN
--- NOTE | 2022-02-19 09:17 | PCM.NOTE ---
Date and Time: 02/19/22913 Subjective Assessment: breathing is improved, overall he reports he is feeling better. Objective Exam General Appearance: no apparent distress Neurologic Exam: alert, oriented x 3 Respiratory Exam: crackles/rales (improved), No accessory muscle use, No prolonged expirations Cardiovascular Exam: regular rate/rhythm, murmur Gastrointestinal/Abdomen Exam: soft, No tenderness, No mass Extremity Exam: normal inspection, normal range of motion OBJECTIVE DATA Vital Signs: Vital Signs - 24 hr Temp Pulse Resp BP Pulse Ox 02/19/22 07:40 97.1 F 83 18 114/63 99 02/19/22 07:35 84 20 93 L 02/19/22 04:15 97.3 F 80 20 108/66 99 02/18/22 23:55 97.9 F 85 18 117/71 98 02/18/22 20:00 97.1 F 91 H 22 130/84 98 02/18/22 19:53 87 19 97 02/18/22 19:00 88 16 97 02/18/22 16:00 97.9 F 86 16 123/97 97 02/18/22 15:43 84 16 95 02/18/22 11:31 84 16 95 02/18/22 11:20 98.1 F 91 H 16 121/59 95 Pain Assessment - Last Documented Pain Intensity 0 Intake and Output: Intake & Output 02/16/22 02/17/22 02/18/22 02/19/22 11:59 11:59 11:59 11:59 Intake Total 240 1320 1940 Output Total 350 1075 2975 Balance -110 245 -1035 Weight 104.6 kg 104.6 kg 104.3 kg Lab Results: Lab Results-Last 24 Hours 02/18/22 02/19/22 02/19/22 Range/Units 04:15 04:30 04:30 WBC 17.5 H 14.4 H (4.0-10.5) K/mm3 RBC 4.03 L 3.81 L (4.1-5.6) M/mm3 Hgb 11.4 L 10.7 L (12.5-18.0) gm/dl Hct 37.1 L 34.8 L (42-50) % MCV 92.1 91.3 (78-100) fl MCH 28.3 28.1 (26-32) pg MCHC 30.7 L 30.7 L (32-36) g/dl RDW 20.9 H 21.1 H (11.5-14.0) % Plt Count 372 407 (150-450) K/mm3 MPV 11.7 H 11.2 H (7.5-11.0) fl Segmented Neutrophils 64 64 (36.-66.) % Band Neutrophils 9 H 3 H (0.0-2.0) % Lymphocytes (Manual) 17 L 26 (24-44) % Monocytes (Manual) 4 6 (0.0-12.0) % Eosinophils (Manual) 1 (0.00-3.0) % Metamyelocytes 3 % Myelocytes 2 % Promyelocytes 1 % Nucleated RBCs 8 2 % Platelet Estimate NORMAL (NORMAL) RBC Morphology ABNORMAL Polychromasia 1+ 1+ Poikilocytosis 1+ Anisocytosis 3+ 1+ Tear Drop Cells 1+ Ovalocytes 3+ 1+ Schistocytes RARE Morphology Comment GIANT PLATELETS SEEN Smear Path Review Sodium 134 L (137-145) mmol/L Potassium 4.1 (3.5-5.1) mmol/L Chloride 99 (98-107) mmol/L Carbon Dioxide 25 (22-30) mmol/L Anion Gap 14.1 (5-15) MEQ/L BUN 42 H (9-20) mg/dL Creatinine 1.89 H (0.66-1.25) mg/dL Estimated GFR 36.3 ML/MIN Glucose 87 (74-106) mg/dL Calcium 8.3 L (8.4-10.2) mg/dL Radiology Exams: Radiology Procedures Category Date Time Status ECHO W/2D AND DOPPLER [US] Routine Exams 02/17/22 11:01 Taken Multi-Disciplinary Progress Notes: Multi-Disciplinary Progress Notes 02/18/22 13:44 Respiratory Note by Riana Brothers Patient O2 sat 86% on room air at rest. Placed patient back on 2lpm per NC O2 sat increased to 95% on O2 at 2lpm at rest. Initialized on 02/18/22 13:44 - END OF NOTE 02/18/22 09:47 Case Management Note by Ashley Cortez PATIENT STILL ACUTELY ILL- NO CHANGE IN DC PLANS AT THIS TIME. RT AWARE PATIENT ONLY HAVE ORDER AT HOME FOR HS OXYGEN. THEY WILL TRY TO WEEN TO ROOM AIR OR QUALIFY PATIENT FOR HOME OXYGEN IF NEEDED DURING THE DAY Initialized on 02/18/22 09:47 - END OF NOTE Assessment/Plan (1) CHF exacerbation Current Visit: Yes Status: Acute Qualifiers: Assessment & Plan: diuresing well, likely home tomorrow on increased po lasix dose. cardiology consulted Code(s): I50.9 - HEART FAILURE, UNSPECIFIED (2) Aortic stenosis Current Visit: Yes Status: Acute Assessment & Plan: Dr Emerson saw patient and reviewed echo, with recurrent chf exacerbations and EF 40-45% is marginally reduced he is likely a candidate for TAVR, he will see him in f/u to start the process of planning for the procedure Code(s): I35.0 - NONRHEUMATIC AORTIC (VALVE) STENOSIS (3) Elevated troponin Current Visit: Yes Status: Acute Code(s): R77.8 - OTHER SPECIFIED ABNORMALITIES OF PLASMA PROTEINS (4) Right upper lobe pneumonia Current Visit: No Status: Acute Qualifiers: Assessment & Plan: clinically improving Code(s): J18.9 - PNEUMONIA, UNSPECIFIED ORGANISM
[2022-02-19] MEDS: Klor Con 10 MEQ PO SCH ×2 (09:27→21:32)
[2022-02-19] MEDS: ULTRAM 50 MG PO PRN ×2 (09:30→21:32)
[2022-02-19] MEDS: Protonix 40MG Tablet PO SCH (09:31)
[2022-02-19] MEDS: Lexapro 10 MG PO SCH (09:31)
[2022-02-19] MEDS: PATIENT OWN MEDICATION PO SCH ×2 (09:31→21:33)
[2022-02-19] MEDS: Levofloxacin 250MG Tablet PO SCH (09:31)
[2022-02-19] MEDS: FEOSOL 325 MG PO SCH (09:31)
[2022-02-19] MEDS: ENOXAPARIN SODIUM SQ SCH (09:31)
[2022-02-19] MEDS: ZYLOPRIM 100 MG PO SCH (09:32)
[2022-02-19] MEDS: DESYREL 50 MG PO SCH (21:33)
[2022-02-19] MEDS: Zocor 10MG PO SCH (21:33)
[2022-02-20 05:30] LABS: Hematocrit 33.6 % (42-50); Hemoglobin 10.4 gm/dl (12.5-18.0); Mean Cell Volume 92.1 fl (78-100); Mean Corpuscular Hemoglobin 28.5 pg (26-32); Mean Platelet Volume 10.7 fl (7.5-11.0); Platelet Count 358 K/mm3 (150-450); Red Blood Count 3.65 M/mm3 (4.1-5.6); Red Cell Distribution Width 21.3 % (11.5-14.0); White Blood Count 12.3 K/mm3 (4.0-10.5)
[2022-02-20 05:43] LABS: ANION GAP 11.6 MEQ/L (5-15); Creatinine 1 1.75 mg/dL (0.66-1.25); EST GLOMERULAR FILTRATION RATE 39.7 ML/MIN; MAGNESIUM 2.2 mg/dL (1.6-2.3); Potassium 3.6 mmol/L (3.5-5.1)
[2022-02-20] MEDS: Lasix 40 MG/4 ML IV SCH (06:04)
[2022-02-20 07:09] LABS: Lymphocytes 18 % (24-44); Monocyte 5 % (0.0-12.0); Neutrophils 74 % (36.-66.); Nucleated Red Blood Cell 1 %; Total Cells Counted 100
[2022-02-20] MEDS: DUONEB 0.5-3 MG/3 ml Neb IH SCH (07:12)
[2022-02-20 07:17] LABS: ANISOCYTOSIS 1+; Basophil 2 % (0.0-1.0); Hypochromia 1+; Metamyelocyte 1 %; Ovalocytes 1+; Poikilocytosis 1+; Polychromasia 1+
[2022-02-20 07:18] LABS: Platelet Estimate NORMAL (NORMAL)
[2022-02-20 07:41] VITALS: BP 102/63; PULSE 82; O2SAT 97
--- NOTE | 2022-02-20 08:00 | PCM.DS ---
Discharge Summary Date of Admission: 02/17/22 08:08 Admitting Physician: ORTIZ DENIS Consults: Consults on Case 02/17/22 08:07 Consult Cardiology ROUTINE Primary Care Provider: DALIA NICHOLAS Allergies Allergies azithromycin Adverse Reaction (Verified 02/17/22 23:32) Hospital Summary - Hospital Course Hospital Course: patient was admitted with acute exacerbation of chf and recent pneumonia, wbc improved on levaquin and has diuresed well. seems back to baseline, cardiology consult with Dr Palma recommends consideration for TAVR for aortic stenosis - Vitals & Intake/Output Vital Signs: Vital Signs Temperature 97.1 F 02/20/22 07:41 Pulse Rate 82 02/20/22 07:41 Respiratory Rate 18 02/20/22 07:41 Blood Pressure 102/63 02/20/22 07:41 O2 Sat by Pulse Oximetry 97 02/20/22 07:41 Intake & Output: Intake & Output 02/17/22 02/18/22 02/19/22 02/20/22 11:59 11:59 11:59 11:59 Intake Total 240 1320 2040 1240 Output Total 350 1075 3275 2550 Balance -110 245 -1235 -1310 Weight 104.6 kg 104.6 kg 104.3 kg 101 kg - Lab Result Diagrams: 02/20/22 04:45 02/20/22 04:45 Lab Results-Last 24 Hrs: Lab Results-Last 24 Hours 02/19/22 02/20/22 02/20/22 Range/Units 04:30 04:45 04:45 WBC 12.3 H (4.0-10.5) K/mm3 RBC 3.65 L (4.1-5.6) M/mm3 Hgb 10.4 L (12.5-18.0) gm/dl Hct 33.6 L (42-50) % MCV 92.1 (78-100) fl MCH 28.5 (26-32) pg MCHC 31.0 L (32-36) g/dl RDW 21.3 H (11.5-14.0) % Plt Count 358 (150-450) K/mm3 MPV 10.7 (7.5-11.0) fl Segmented Neutrophils 64 74 H (36.-66.) % Band Neutrophils 3 H (0.0-2.0) % Lymphocytes (Manual) 26 18 L (24-44) % Monocytes (Manual) 6 5 (0.0-12.0) % Eosinophils (Manual) 1 (0.00-3.0) % Basophils (Manual) 2 H (0.0-1.0) % Metamyelocytes 1 % Nucleated RBCs 2 1 % Hypochromia 1+ Platelet Estimate NORMAL (NORMAL) RBC Morphology ABNORMAL Polychromasia 1+ 1+ Poikilocytosis 1+ 1+ Anisocytosis 1+ 1+ Ovalocytes 1+ 1+ Morphology Comment GIANT PLATELETS SEEN Sodium 134 L (137-145) mmol/L Potassium 3.6 (3.5-5.1) mmol/L Chloride 98 (98-107) mmol/L Carbon Dioxide 28 (22-30) mmol/L Anion Gap 11.6 (5-15) MEQ/L BUN 36 H (9-20) mg/dL Creatinine 1.75 H (0.66-1.25) mg/dL Estimated GFR 39.7 ML/MIN Glucose 100 (74-106) mg/dL Calcium 8.0 L (8.4-10.2) mg/dL Magnesium 2.2 (1.6-2.3) mg/dL NT-Pro-B Natriuret Pep 7280 H (0-1800) pg/mL Micro Results-Entire Visit: Microbiology 02/16/22 22:15 Blood Culture - Preliminary Blood NO GROWTH TO DATE 02/16/22 22:10 Blood Culture - Preliminary Blood NO GROWTH TO DATE - Procedures and Test Procedures and Tests throughout Hospitalization: Therapy Orders & Screens 02/16/22 22:02 Respiratory Therapy Assessment DAILY Comment: 02/17/22 02:21 Oxygen NASAL CANNULA 2 lpm Comment: Diagnosis: pnuemonia Respiratory Therapy Assessment DAILY Comment: Diagnosis: pnuemonia Discharge Exam General Appearance: no apparent distress Neurologic Exam: alert, oriented x 3 Respiratory Exam: normal breath sounds, lungs clear, No respiratory distress Cardiovascular Exam: regular rate/rhythm, normal heart sounds Gastrointestinal/Abdomen Exam: soft, No tenderness, No mass Extremity Exam: pedal edema Final Diagnosis/Problem List - Final Discharge Diagnosis/Problem (1) CHF exacerbation Current Visit: Yes Status: Acute Code(s): I50.9 - HEART FAILURE, UNSPECIFIED (2) Aortic stenosis Current Visit: Yes Status: Acute Code(s): I35.0 - NONRHEUMATIC AORTIC (VALVE) STENOSIS (3) Elevated troponin Current Visit: Yes Status: Acute Code(s): R77.8 - OTHER SPECIFIED ABNORMALITIES OF PLASMA PROTEINS (4) Right upper lobe pneumonia Current Visit: No Status: Acute Code(s): J18.9 - PNEUMONIA, UNSPECIFIED ORGANISM - Discharge Disposition: Home, Self-Care Condition: Stable Prescriptions: New Potassium Chloride [Klor-Con 10] 10 meq PO BID #60 tab Furosemide 40 mg [Lasix 40 MG] 40 mg PO DAILY #30 tablet Levofloxacin [Levofloxacin 250MG Tablet] 250 mg PO DAILY #7 tab Continue Escitalopram Oxalate 10 mg [Lexapro 10 MG] 10 mg PO DAILY Allopurinol 100 mg [Zyloprim 100 mg] 100 mg PO DAILY Vit C/E/Zn/Coppr/Lutein/Zeaxan [Preservision Areds 2 Softgel] 1 cap PO BID Trazodone HCl 50 mg PO HS Tramadol HCl 50 mg [Ultram 50 mg] 50 mg PO Q6HPRN PRN PRN Reason: Pain Ruxolitinib Phosphate [Jakafi] 10 mg PO BID Ropinirole HCl 0.5 mg PO DAILY PRN PRN PRN Reason: RESTLESS LEG PANTOPRAZOLE 40 mg Tablet [Protonix 40MG Tablet] 40 mg PO DAILY Lovastatin [Altoprev] 20 mg PO HS Ferrous Sulfate [Andi-Time] 325 mg PO DAILY Albuterol Sulfate [Albuterol Sulfate Hfa] 90 mcg IH Q4H PRN PRN PRN Reason: Shortness Of Breath Valsartan 40 mg PO DAILY Multivitamin [Multi-Vitamin Daily] 1 each PO DAILY Discontinued Furosemide 20 mg [Lasix 20 mg] 20 mg PO DAILY Potassium Chloride [Klor-Con M10] 10 meq PO DAILY #30 tab Follow up with: DALIA NICHOLAS MD [Primary Care Provider] - RAMSES PALMA [CONSULTING PHYSICIAN] - Call for Appointment
[2022-02-20] MEDS: ZYLOPRIM 100 MG PO SCH (08:31)
[2022-02-20] MEDS: FEOSOL 325 MG PO SCH (08:31)
[2022-02-20] MEDS: Protonix 40MG Tablet PO SCH (08:31)
[2022-02-20] MEDS: ENOXAPARIN SODIUM SQ SCH (08:31)
[2022-02-20] MEDS: Klor Con 10 MEQ PO SCH (08:32)
[2022-02-20] MEDS: Levofloxacin 250MG Tablet PO SCH (08:32)
[2022-02-20] MEDS: PATIENT OWN MEDICATION PO SCH (08:32)
[2022-02-20] MEDS: Lexapro 10 MG PO SCH (08:32)
[2022-02-20] MEDS: ULTRAM 50 MG PO PRN (08:37)
== END 2022-02-20 10:32 | disposition home health service (06) | DRG 291 ==
LOC: ED 21:29 → MED SURG 02-17 01:08 → OBSVTOIN 02-17 08:08
PROVIDERS: ADMIT Family Medicine; ATTEND Family Medicine
DX: I50.9 Heart failure, unspecified (principal); J18.9 Pneumonia, unspecified organism; I35.0 Nonrheumatic aortic (valve) stenosis; R77.8 Other specified abnormalities of plasma proteins; I42.9 Cardiomyopathy, unspecified; I25.10 Atherosclerotic heart disease of native coronary artery without angina pectoris; D64.9 Anemia, unspecified; D75.1 Secondary polycythemia; M79.89 Other specified soft tissue disorders; Z79.01 Long term (current) use of anticoagulants; Z79.899 Other long term (current) drug therapy; Z99.81 Dependence on supplemental oxygen; Z85.46 Personal history of malignant neoplasm of prostate; Z20.828 Contact with and (suspected) exposure to other viral communicable diseases
CPT/HCPCS: 0241U; 36000; 36415; 71045; 80048; 80053; 81015; 82947; 83605; 83690; 83735; 83880; 84484; 85025; 87040; 93005; 93268; 93306; 94640; 94760; 96365; 96374; 99284; 99291; J0456; J0696; J1650; J1940; J2405; J2930; Q3014; A9270-GY

== ENCOUNTER 2022-03-07 19:12 | Emergency (ER) | payer MEDICARE ==
[2022-03-07 19:38] LABS: Hemoglobin 13.2 gm/dl (12.5-18.0); Mean Cell Volume 91.1 fl (78-100); Mean Corpuscular Hemoglobin 28.6 pg (26-32); Mean Corpuscular Hgb Concent. 31.4 g/dl (32-36); Platelet Count 529 K/mm3 (150-450); Red Blood Count 4.61 M/mm3 (4.1-5.6); Red Cell Distribution Width 21.5 % (11.5-14.0)
[2022-03-07 19:44] LABS: INR 1.53 (0.8-3.0)
[2022-03-07 19:47] LABS: PTT 33.5 SECONDS (25.1-36.5)
[2022-03-07] MEDS ORDERED: Lasix 40 MG/4 ML IV ONE (19:53)
[2022-03-07] MEDS ORDERED: Lasix 40 MG/4 ML ONE (19:54)
[2022-03-07 19:59] LABS: ALBUMIN 4.1 g/dL (3.5-5.0); ANION GAP 16.6 MEQ/L (5-15); BILIRUBIN,TOTAL 2.2 mg/dL (0.2-1.3); Creatinine 1 2.16 mg/dL (0.66-1.25); EST GLOMERULAR FILTRATION RATE 31.1 ML/MIN; Potassium 5.4 mmol/L (3.5-5.1); Total Protein 6.3 g/dL (6.3-8.2)
--- NOTE | 2022-03-07 20:08 | ERPHSYRPT ---
- History of Present Illness Source: patient, EMS Exam Limitations: no limitations Patient Subjective Stated Complaint: Pt states "My legs started feeling more swollen than usual." Triage Nursing Assessment: Pt presents to ER via [facility]. Pt has hx of CHF. Pt c/o bilateral lower extremity swelling. Pt states "My legs are always swollen but today around 3 pm." pt denies chest pain, or increased SOB. Pt has +3 pitting edema on bilateral extremites, pt is afebrile Physician History: 86 yo wm from assisted living facility who is 2L O2 dependent due to CHF presents w increasing B lower extremity edema over the last day. Pt states that he has a bad aortic valve and is waiting on surgical evaluation for percutaneous replacement. He states that he is just a little bit more dyspneic than his norm and that his orthopnea is increasing. Pt also has a mild cough which might be more of a chronic nature. He denies chest pain/fever/coryza/melena/hematochezia. Timing/Duration: today Activities at Onset: rest Severity of Dyspnea-Max: moderate Severity of Dyspnea-Current: mild Possible Cause: frequent episodes Modifying Factors: Improves With: oxygen Associated Symptoms: edema, ankle swelling, leg swelling, No chest pain/discomfort, No fever, No insomnia, No loss of appetite, No lightheadedness, No wheezing, No weakness, No chills, No hemoptysis, No calf pain, No dizziness, No heaviness, No heart racing, No lightheadedness, No muscle spasms feet, No muscle spasms hands, No painful breathing, No productive cough, No sweating, No tightness, No tingling face Allergies/Adverse Reactions: azithromycin Adverse Reaction (Verified 02/17/22 23:32) Home Medications: Albuterol Sulfate [Albuterol Sulfate Hfa] 90 mcg IH Q4H PRN PRN 02/05/22 [History] Allopurinol 100 mg [Zyloprim 100 mg] 100 mg PO DAILY 02/05/22 [History] Escitalopram Oxalate 10 mg [Lexapro 10 MG] 10 mg PO DAILY 02/05/22 [History] Ferrous Sulfate [Andi-Time] 65 mg PO DAILY 02/05/22 [History] Lovastatin [Altoprev] 20 mg PO HS 02/05/22 [History] Multivitamin [Multi-Vitamin Daily] 1 each PO DAILY 02/05/22 [History] PANTOPRAZOLE 40 mg Tablet [Protonix 40MG Tablet] 40 mg PO DAILY 02/05/22 [History] Ruxolitinib Phosphate [Jakafi] 10 mg PO BID 02/05/22 [History] Tramadol HCl 50 mg [Ultram 50 mg] 50 mg PO Q6HPRN PRN 02/05/22 [History] Trazodone HCl 50 mg PO HS 02/05/22 [History] Vit C/E/Zn/Coppr/Lutein/Zeaxan [Preservision Areds 2 Softgel] 1 cap PO BID 02/05/22 [History] Ropinirole HCl 0.5 mg [Requip 0.5 MG] 0.5 mg PO HS PRN PRN 03/07/22 [History] Valsartan [Diovan] 40 mg PO DAILY 03/07/22 [History] Hx Tetanus, Diphtheria Vaccination/Date Given: Yes Hx Influenza Vaccination/Date Given: Yes Hx Pneumococcal Vaccination/Date Given: Yes Immunizations Up to Date: Yes Travel Risk - International Travel Have you traveled outside of the country in past 3 weeks: No - Coronavirus Screening Are you exhibiting any of the following symptoms?: No Close contact with a COVID-19 positive Pt in past 14-21 Days: No - Vaccine Status Have you recieved a Covid-19 vaccination: Yes Library Media Assistant: Moderna - Vaccination Dates Date of 2cond Vaccination (if applicable): 01/18/21 - Review of Systems Constitutional: No Symptoms, Weakness Eyes: No Symptoms Ears, Nose, & Throat: No Symptoms Respiratory: No Symptoms, Cough, Dyspnea, Dyspnea on Exertion (LUKE) Cardiac: No Symptoms, Edema Abdominal/Gastrointestinal: No Symptoms Genitourinary Symptoms: No Symptoms Musculoskeletal: Other (Pre-tibial edema) Skin: No Symptoms Neurological: No Symptoms Psychological: No Symptoms Endocrine: No Symptoms Hematologic/Lymphatic: No Symptoms Immunological/Allergic: No Symptoms - Past Medical History Pertinent Past Medical History: Yes Neurological History: No Pertinent History ENT History: Cataracts Cardiac History: Congestive Heart Failure, High Cholesterol, Hypertension, Other Respiratory History: Pneumonia Endocrine Medical History: No Pertinent History Musculoskeletal History: Arthritis GI Medical History: GERD, Ulcer History: No Pertinent History Psycho-Social History: Depression Male Reproductive Disorders: Prostate Cancer Other Medical History: Leaking heart valve, COVID in November 2021, polycythemia, RLS - Past Surgical History Past Surgical History: Yes Neuro Surgical History: No Pertinent History Cardiac: No Pertinent History Respiratory: No Pertinent History Gastrointestinal: Cholecystectomy, Hernia Repair Genitourinary: No Pertinent History Musculoskeletal: No Pertinent History Male Surgical History: Prostate Surgery - Social History Smoking Status: Former smoker Exposure to second hand smoke: No Drug Use: none Patient Lives Alone: No - Nursing Vital Signs Nursing Vital Signs: Initial Vital Signs Temperature 97.4 F 03/07/22 19:13 Pulse Rate 104 H 03/07/22 19:13 Respiratory Rate 21 03/07/22 19:13 Blood Pressure 110/86 03/07/22 19:13 O2 Sat by Pulse Oximetry 96 03/07/22 19:13 Pain Scale Pain Intensity 2 Tachy - Physical Exam General Appearance: no apparent distress Eye Exam: PERRL/EOMI, eyes nml inspection Ears, Nose, Throat Exam: hearing grossly normal, normal ENT inspection, normal pharynx, No abnormal TM (R), No abnormal TM (L) Neck Exam: normal inspection, non-tender, supple, full range of motion, No Brudzinski, No Kernig's, No meningismus, No carotid bruit Respiratory Exam: airway intact, crackles/rales (Rales bases R>L), No respiratory distress Cardiovascular/Chest Exam: normal heart sounds, murmur (2/6 GLADYS) Abdominal/Gastrointestinal Exam: soft, normal bowel sounds, No tenderness Extremity Exam: normal capillary refill, no calf tenderness, pedal edema (2-3+ B pre-tibial edema) Peripheral Pulses Exam: carotid (R): 2+, carotid (L): 2+, dorsalis-pedis (R): 2+, dorsalis-pedis (L): 2+ Neurologic Exam: alert, oriented x 3, cooperative, 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, normal mood/affect, sensation nml, No motor deficits, No sensory deficit Skin Exam: normal color, warm, dry Lymphatic Exam: No adenopathy SpO2 Interpretation: normal SpO2: 96 O2 Delivery: Room Air - Course Nursing assessment & vital signs reviewed: Yes EKG Interpreted by Me: RATE - Radiology Exams Chest X-ray Interpretation: Interpreted by me (Cardiomegaly/pulmonary vascular congestion/Small R pleural effusion) - CT Exams Chest CT Interpretation: Tele-radiologist Report (RUL masslike consolidation-pneumonia vs neoplasm) Ordered Tests: Active Orders 24 hr Category Date Time Status EKG-ER Only STAT Care 03/07/22 20:13 Completed IV Insertion STAT Care 03/07/22 19:42 Completed CHEST 1 VIEW (PORTABLE) Stat Exams 03/07/22 19:17 Taken CHEST WITHOUT CONTRAST [CT] Stat Exams 03/07/22 20:39 Taken BLOOD CULTURE Stat Lab 03/07/22 22:20 Received CBC W DIFF Stat Lab 03/07/22 19:25 Results CMP Stat Lab 03/07/22 19:25 Completed Lactic Acid Stat Lab 03/07/22 21:55 Completed Manual Differential NC Stat Lab 03/07/22 19:25 Results NT PRO BNP Stat Lab 03/07/22 19:25 Completed PROTIME WITH INR Stat Lab 03/07/22 19:25 Completed PTT Stat Lab 03/07/22 19:25 Completed Pathologist Review Stat Lab 03/07/22 19:25 Results TROPONIN Q3H Lab 03/07/22 19:25 Completed TROPONIN Q3H Lab 03/07/22 21:35 Completed Medication Summary Discontinued Medications Generic Name Dose Route Start Last Admin Trade Name Freq PRN Reason Stop Dose Admin Aspirin 324 mg 03/07/22 22:58 03/07/22 23:19 Aspirin 81 Mg Tab.Chew PO 03/07/22 22:59 324 mg STAT ONE Administration Aspirin Confirm 03/07/22 23:19 Aspirin 81 Mg Tab.Chew Administered 03/07/22 23:20 Dose 324 mg .ROUTE .STK-MED ONE Furosemide 40 mg 03/07/22 19:53 03/07/22 19:55 Furosemide 40 Mg/4 Ml Vial IV 03/07/22 19:54 40 mg STAT ONE Administration Furosemide Confirm 03/07/22 19:54 Furosemide 40 Mg/4 Ml Vial Administered 03/07/22 19:55 Dose 40 mg .ROUTE .STK-MED ONE Levofloxacin/Dextrose 500 mg in 100 mls @ 100 mls/hr 03/07/22 22:06 03/07/22 22:31 Levofloxacin 500mg/100ml D5w IV 03/07/22 23:05 100 mls/hr STAT STA 100 mls/hr Administration Levofloxacin/Dextrose Confirm 03/07/22 22:30 Levofloxacin 500mg/100ml D5w Administered 03/07/22 22:31 Dose 500 mg in 100 mls @ ud IV .STK-MED ONE Ropinirole HCl 0.5 mg 03/07/22 23:25 03/07/22 23:32 Ropinirole Hcl 0.5 Mg Tablet PO 03/07/22 23:26 0.5 mg STAT ONE Administration Lab/Rad Data: Laboratory Result Diagrams 03/07/22 19:25 03/07/22 19:25 Laboratory Results 03/07/22 03/07/22 03/07/22 Range/Units 21:55 21:35 20:25 WBC (4.0-10.5) K/mm3 RBC (4.1-5.6) M/mm3 Hgb (12.5-18.0) gm/dl Hct (42-50) % MCV (78-100) fl MCH (26-32) pg MCHC (32-36) g/dl RDW (11.5-14.0) % Plt Count (150-450) K/mm3 MPV (7.5-11.0) fl Smear Path Review PT (9.4-12.5) SECONDS INR (0.8-3.0) APTT (25.1-36.5) SECONDS Sodium (137-145) mmol/L Potassium (3.5-5.1) mmol/L Chloride (98-107) mmol/L Carbon Dioxide (22-30) mmol/L Anion Gap (5-15) MEQ/L BUN (9-20) mg/dL Creatinine (0.66-1.25) mg/dL Estimated GFR ML/MIN Glucose (74-106) mg/dL Lactic Acid 1.7 (0.4-2.0) Calcium (8.4-10.2) mg/dL Total Bilirubin (0.2-1.3) mg/dL AST (17-59) U/L ALT (0-50) U/L Alkaline Phosphatase (38-126) U/L Troponin I 0.980 H* (0.000-0.034) ng/mL NT-Pro-B Natriuret Pep (0-1800) pg/mL Serum Total Protein (6.3-8.2) g/dL Albumin (3.5-5.0) g/dL Influenza Type A Ag NEGATIVE (NEGATIVE) Influenza Type B Ag NEGATIVE (NEGATIVE) RSV (PCR) NEGATIVE (Negative) SARS-CoV-2 (PCR) NEGATIVE (NEGATIVE) 03/07/22 03/07/22 03/07/22 Range/Units 19:25 19:25 19:25 WBC (4.0-10.5) K/mm3 RBC (4.1-5.6) M/mm3 Hgb (12.5-18.0) gm/dl Hct (42-50) % MCV (78-100) fl MCH (26-32) pg MCHC (32-36) g/dl RDW (11.5-14.0) % Plt Count (150-450) K/mm3 MPV (7.5-11.0) fl Smear Path Review PT 18.0 H (9.4-12.5) SECONDS INR 1.53 (0.8-3.0) APTT 33.5 (25.1-36.5) SECONDS Sodium 131 L (137-145) mmol/L Potassium 5.4 H (3.5-5.1) mmol/L Chloride 97 L (98-107) mmol/L Carbon Dioxide 23 (22-30) mmol/L Anion Gap 16.6 H (5-15) MEQ/L BUN 42 H (9-20) mg/dL Creatinine 2.16 H (0.66-1.25) mg/dL Estimated GFR 31.1 ML/MIN Glucose 101 (74-106) mg/dL Lactic Acid (0.4-2.0) Calcium 9.0 (8.4-10.2) mg/dL Total Bilirubin 2.20 H (0.2-1.3) mg/dL AST 64 H (17-59) U/L ALT 59 H (0-50) U/L Alkaline Phosphatase 118 (38-126) U/L Troponin I 1.000 H* (0.000-0.034) ng/mL NT-Pro-B Natriuret Pep 44380 H (0-1800) pg/mL Serum Total Protein 6.3 (6.3-8.2) g/dL Albumin 4.1 (3.5-5.0) g/dL Influenza Type A Ag (NEGATIVE) Influenza Type B Ag (NEGATIVE) RSV (PCR) (Negative) SARS-CoV-2 (PCR) (NEGATIVE) 03/07/22 Range/Units 19:25 WBC 27.0 H* (4.0-10.5) K/mm3 RBC 4.61 (4.1-5.6) M/mm3 Hgb 13.2 (12.5-18.0) gm/dl Hct 42.0 (42-50) % MCV 91.1 (78-100) fl MCH 28.6 (26-32) pg MCHC 31.4 L (32-36) g/dl RDW 21.5 H (11.5-14.0) % Plt Count 529 H (150-450) K/mm3 MPV 11.0 (7.5-11.0) fl Smear Path Review Pending PT (9.4-12.5) SECONDS INR (0.8-3.0) APTT (25.1-36.5) SECONDS Sodium (137-145) mmol/L Potassium (3.5-5.1) mmol/L Chloride (98-107) mmol/L Carbon Dioxide (22-30) mmol/L Anion Gap (5-15) MEQ/L BUN (9-20) mg/dL Creatinine (0.66-1.25) mg/dL Estimated GFR ML/MIN Glucose (74-106) mg/dL Lactic Acid (0.4-2.0) Calcium (8.4-10.2) mg/dL Total Bilirubin (0.2-1.3) mg/dL AST (17-59) U/L ALT (0-50) U/L Alkaline Phosphatase (38-126) U/L Troponin I (0.000-0.034) ng/mL NT-Pro-B Natriuret Pep (0-1800) pg/mL Serum Total Protein (6.3-8.2) g/dL Albumin (3.5-5.0) g/dL Influenza Type A Ag (NEGATIVE) Influenza Type B Ag (NEGATIVE) RSV (PCR) (Negative) SARS-CoV-2 (PCR) (NEGATIVE) - Progress Progress: improved Progress Note: 03/07/22 22:07 40mg IV Lasix w diuresis of 1L Blood cultures x2 500mg IV Levaquin 03/07/22 23:04 Pt's son in law wants pt transferred to [facility], and pt agrees with that plan Pt accepted by Dr. Holbrook Counseled pt/family regarding: lab results, diagnosis, need for follow-up, rad results - Departure Clinical Impression: Pneumonia, CHF (congestive heart failure), Renal failure Condition: Stable Critical Care Time: No Referrals: DALIA NICHOLAS MD [Primary Care Provider] - Follow up/PCP as directed Instructions: Heart Failure
[2022-03-07 21:14] LABS: INFLUENZA A NEGATIVE (NEGATIVE); INFLUENZA B NEGATIVE (NEGATIVE); RESPIRATORY SYNCTIAL VIRUS NEGATIVE (Negative); SARS-CoV-2 Xpert Express NEGATIVE (NEGATIVE)
[2022-03-07] MEDS ORDERED: Levofloxacin 500MG/100ML D5W 500 MG/100 ML BAG IV STA (22:06)
[2022-03-07] MEDS ORDERED: Levofloxacin 500MG/100ML D5W 500 MG/100 ML BAG IV ONE (22:30)
[2022-03-07] MEDS ORDERED: BABY ASPIRIN 81 MG CHEW PO ONE (22:58)
[2022-03-07] MEDS ORDERED: BABY ASPIRIN 81 MG CHEW ONE (23:19)
[2022-03-07] MEDS ORDERED: Requip 0.5 MG PO ONE (23:25)
[2022-03-08 00:04] VITALS: BP 103/65; PULSE 97
[2022-03-08 01:51] VITALS: O2SAT 96
--- NOTE | 2022-03-08 07:31 | XRAY ---
Indication: Leg swelling. Multiple contiguous axial images obtained through the chest without contrast. Comparison: None Lungs demonstrates mild diffuse pulmonary emphysema, scattered bilateral peripheral fibrosis/scarring, and a few tiny bilateral calcified granulomas. Inferior right upper lobe demonstrates a subpleural noncalcified masslike opacity measuring at least 5.0 x 5.3 x 3.4 cm with irregular margins. Moderate right and small left effusions with mild right base compressive atelectasis. Heart not enlarged with scattered coronary and aortic valve calcifications. Aorta is moderately arteriosclerotic without aneurysm. No pathologic mediastinal lymphadenopathy. Bony thorax intact with mild degenerative changes throughout the spine. Limited upper abdomen demonstrates 16.8 cm splenomegaly, tiny splenic calcified granulomas, and tiny abdominal ascites. Impression: 1. Irregular right upper lobe noncalcified masslike opacity. PET/CT may yield further information. 2. Bilateral effusions right greater than left without cardiomegaly. Tiny abdominal ascites which may be related. 3. Chronic findings including pulmonary emphysema, scattered fibrosis/scarring, splenomegaly, chronic bony findings, and old granulomatous disease. Comment: Preliminary interpretation made by C. No critical discrepancy.
--- NOTE | 2022-03-08 07:33 | XRAY ---
Indication: Right leg edema and swelling. Comparison: February 16, 2022. Portable chest demonstrates grossly stable inferior right upper lobe masslike opacity, increasing small right effusion, and new tiny left effusion. Heart borderline enlarged. Remaining chest unremarkable.
== END 2022-03-08 00:44 | disposition short-term general hospital (02) ==
LOC: ED 19:12
DX: J18.9 Pneumonia, unspecified organism (principal); I50.9 Heart failure, unspecified; N19 Unspecified kidney failure; R06.00 Dyspnea, unspecified; R05.9 Cough, unspecified; E78.5 Hyperlipidemia, unspecified; I11.0 Hypertensive heart disease with heart failure; Z99.81 Dependence on supplemental oxygen; Z86.16 Personal history of COVID-19; Z79.891 Long term (current) use of opiate analgesic; Z79.899 Other long term (current) drug therapy
CPT/HCPCS: 0241U; 36000; 36415; 71045; 71250; 80053; 83605; 83880; 84484; 85025; 85610; 85730; 87040; 93005; 96374; 99285; 96365; J1940; J1956; A9270-GY